=== PATIENT | female | born 1970 | race African-American/Black ===

== ENCOUNTER 2019-07-25 07:51 | Inpatient (IN) | payer MEDICAID ==
[~2019-07-25] VITALS: Ht 162.6 cm; Wt 77.1 kg
--- NOTE | 2019-07-25 07:45 | NUR ---
ED Nurse Note: ATTEMPTED TO COLLECT MEDICATION LIST BUT PT. DOES NOT REMEMBER THE MEDS SHE TAKES AND RA 68 DOES NOT HAVE THE COPY OF HER MEDLIST WELL
[~2019-07-25 07:51] MED LIST: ASPIRIN325 MG ORAL; HYDROCHLOROTH12.5 M2 ORAL; HYDROCHLOROTHIA25 MG ORAL; LISINOPRIL2.5 MG ORAL; MORPHINE 22 MG/1 ML IV; OMEPRAZOLE20 M2 ORAL; PROTONIX40 MG ORAL; QUINAPRIL HCL5 MG PO; TYLENOL650 MG/20. ORAL; VICTOZA 2-0.6 MG/0.1 SUBQ
--- NOTE | 2019-07-25 07:52 | NUR ---
ED Nurse Note: Late entry: PT brought in by MAURICE PADILLA 68 for CP; first symptoms of CP around 0530; PT has R-arm radiating pain; hx of 2 stents in 2013 @ [facility] both at the same time; PT AAOx3-4; reported by RA tat PT has hx of DM; HTN; BS upon arrival 139; SR on EKG; 1 shot nitro and 325mg aspirin given by RA unit. HX of anxiety, PT ambulates with cane due to R-broken toe which is work related. Placed on spring fitter helper, will continue to monitor PT.
[2019-07-25 08:25] VITALS: BP 164/99
--- NOTE | 2019-07-25 08:32 | Emergency Room Report ---
History of Present Illness General Chief Complaint: Chest Pain Source: Patient, EMS Present Illness HPI Patient presents with complaints of left upper chest pain and heaviness Reports that she was getting ready for work this morning when she felt the discomfort appeared to be associated with exertion and so she started to move At a slower pace Denies any headache denies any vomiting denies any pleurisy Denies any abdominal pain Patient has pertinent medical history including visit here in 2013 Where she developed elevated troponin levels and was transferred to [facility] and had Stent placement patient reports that she has not had appropriate follow-up since then Allergies: Coded Allergies: METFORMIN (Unverified Allergy, Unknown, 07/25/19) Patient History Past Medical History: see triage record Reviewed Nursing Documentation: PMH: Agreed; PSxH: Agreed Nursing Documentation-PMH Hx Cardiac Problems: Yes Hx Hypertension: Yes Hx Diabetes: Yes Hx Cancer: No Hx Gastrointestinal Problems: No Hx Neurological Problems: No Review of Systems All Other Systems: negative except mentioned in HPI Physical Exam Vital Signs Date Time Temp Pulse Resp B/P (MAP) Pulse Ox O2 Delivery O2 Flow Rate FiO2 07/25/19 07:33 98.8 73 19 164/99 (120) 99 Room Air Sp02 EP Interpretation: reviewed, normal General Appearance: well appearing, no apparent distress Head: normocephalic, atraumatic Eyes: bilateral eye PERRL, bilateral eye EOMI ENT: hearing grossly normal, normal pharynx, TMs + canals normal, uvula midline Neck: full range of motion, supple, no meningismus, no bony tend Respiratory: lungs clear, normal breath sounds, no rhonchi, no respiratory distress, no retraction, no accessory muscle use Cardiovascular #1: normal peripheral pulses, regular rate, rhythm, no edema, no gallop, no JVD, no murmur Gastrointestinal: normal bowel sounds, non tender, soft, no mass, no organomegaly, non-distended, no guarding, no hernia, no pulsatile mass, no rebound Genitourinary: no CVA tenderness Musculoskeletal: back normal Neurologic: motor strength/tone normal, media relations coordinator III-XII nml as tested, oriented x3 , sensory intact, responsive Psychiatric: mood/affect normal Skin: no rash Lymphatic: normal inspection, no adenopathy Procedures Critical Care Time Critical Care Time 50 minutes for multiple re-evaluations initial critical presentation findings concerning for acute cardiopulmonary arrest not including any procedural time Medical Decision Making Diagnostic Impression: Primary Impression: ACS (acute coronary syndrome) Additional Impression: Elevated troponin ER Course Patient is a fairly complex patient with multiple differential to consideration including but not limited to cardiac cardiopulmonary and vascular emergencies Patient's description of pain is concerning the initial troponin is also slightly elevated EKG does not show any ST elevations The troponin and EKG are repeated Remaining fairly stable patient is started on heparin bolus and drip And at this time admitted for further inpatient care Labs Test 07/27/19 23:45 07/28/19 08:00 07/28/19 15:00 07/29/19 04:05 Activated Partial Thromboplast Time > 150 SEC (23-33) 101 SEC (23-33) 66 SEC (23-33) 68 SEC (23-33) White Blood Count 3.3 K/UL (4.8-10.8) Red Blood Count 4.50 M/UL (4.20-5.40) Hemoglobin 14.3 G/DL (12.0-16.0) Hematocrit 42.0 % (37.0-47.0) Mean Corpuscular Volume 93 FL (80-99) Mean Corpuscular Hemoglobin 31.7 PG (27.0-31.0) Mean Corpuscular Hemoglobin Concent 34.0 G/DL (32.0-36.0) Red Cell Distribution Width 11.7 % (11.6-14.8) Platelet Count 128 K/UL (150-450) Mean Platelet Volume 11.6 FL (6.5-10.1) Neutrophils (%) (Auto) % (45.0-75.0) Lymphocytes (%) (Auto) % (20.0-45.0) Monocytes (%) (Auto) % (1.0-10.0) Eosinophils (%) (Auto) % (0.0-3.0) Basophils (%) (Auto) % (0.0-2.0) Differential Total Cells Counted 100 Neutrophils % (Manual) 62 % (45-75) Lymphocytes % (Manual) 31 % (20-45) Monocytes % (Manual) 6 % (1-10) Eosinophils % (Manual) 1 % (0-3) Basophils % (Manual) 0 % (0-2) Band Neutrophils 0 % (0-8) Platelet Estimate Decreased Platelet Morphology Normal Red Blood Cell Morphology Normal Prothrombin Time 10.2 SEC (9.30-11.50) Prothromb Time International Ratio 1.0 (0.9-1.1) Sodium Level 145 MMOL/L (136-145) Potassium Level 3.6 MMOL/L (3.5-5.1) Chloride Level 108 MMOL/L (98-107) Carbon Dioxide Level 26 MMOL/L (21-32) Anion Gap 12 mmol/L (5-15) Blood Urea Nitrogen 9 mg/dL (7-18) Creatinine 0.9 MG/DL (0.55-1.30) Estimat Glomerular Filtration Rate > 60 mL/min (>60) Glucose Level 158 MG/DL (74-106) Calcium Level 9.2 MG/DL (8.5-10.1) Total Creatine Kinase 32 U/L (26-308) Troponin I 0.376 ng/mL (0.000-0.056) Pro-B-Type Natriuretic Peptide 593 pg/mL (0-125) Test 07/30/19 04:00 07/30/19 12:30 White Blood Count 4.7 K/UL (4.8-10.8) Red Blood Count 4.32 M/UL (4.20-5.40) Hemoglobin 13.9 G/DL (12.0-16.0) Hematocrit 41.4 % (37.0-47.0) Mean Corpuscular Volume 96 FL (80-99) Mean Corpuscular Hemoglobin 32.0 PG (27.0-31.0) Mean Corpuscular Hemoglobin Concent 33.5 G/DL (32.0-36.0) Red Cell Distribution Width 13.7 % (11.6-14.8) Platelet Count 143 K/UL (150-450) Mean Platelet Volume 13.8 FL (6.5-10.1) Neutrophils (%) (Auto) 52.1 % (45.0-75.0) Lymphocytes (%) (Auto) 38.7 % (20.0-45.0) Monocytes (%) (Auto) 6.1 % (1.0-10.0) Eosinophils (%) (Auto) 1.6 % (0.0-3.0) Basophils (%) (Auto) 1.5 % (0.0-2.0) Activated Partial Thromboplast Time 63 SEC (23-33) 96 SEC (23-33) Sodium Level 147 MMOL/L (136-145) Potassium Level 4.0 MMOL/L (3.5-5.1) Chloride Level 112 MMOL/L (98-107) Carbon Dioxide Level 27 MMOL/L (21-32) Anion Gap 8 mmol/L (5-15) Blood Urea Nitrogen 14 mg/dL (7-18) Creatinine 0.8 MG/DL (0.55-1.30) Estimat Glomerular Filtration Rate > 60 mL/min (>60) Glucose Level 145 MG/DL (74-106) Calcium Level 9.0 MG/DL (8.5-10.1) Troponin I 0.266 ng/mL (0.000-0.056) EKG Diagnostic Results Rate: normal Rhythm: NSR ST Segments: other - Nonspecific ST and T wave changes Rhythm Strip Diag. Results EP Interpretation: yes Rate: 80 Rhythm: NSR, no PVC's, no ectopy Chest X-Ray Diagnostic Results Chest X-Ray Diagnostic Results : Chest X-Ray Ordered: Yes # of Views/Limited/Complete: 1 View Indication: Chest Pain EP Interpretation: Yes Interpretation: no consolidation, no effusion, no pneumothorax Impression: No acute disease Electronically Signed by: Wyatt Powell DO Last Vital Signs Date Time Temp Pulse Resp B/P (MAP) Pulse Ox O2 Delivery O2 Flow Rate FiO2 07/25/19 08:25 98.8 62 19 164/99 99 Room Air Status: improved Disposition: ADMITTED INPATIENT Condition: Critical Wyatt Powell DO Jul 25, 2019 08:32
[2019-07-25 08:38] LABS: BASOPHILS % (AUTO) 1.2 % (0.0-2.0); EOSINOPHILS % (AUTO) 1.1 % (0.0-3.0); HEMATOCRIT 46.6 % (37.0-47.0); HEMOGLOBIN 16.3 G/DL (12.0-16.0); LYMPHOCYTES % (AUTO) 32.1 % (20.0-45.0); MEAN CORPUSCULAR VOLUME 93 FL (80-99); MONOCYTES % (AUTO) 5.4 % (1.0-10.0); NEUTROPHILS % (AUTO) 60.3 % (45.0-75.0); PLATELET COUNT 149 K/UL (150-450); RED BLOOD COUNT 5.02 M/UL (4.20-5.40); RED CELL DISTRIBUTION WIDTH 11.6 % (11.6-14.8); WHITE BLOOD COUNT 5.6 K/UL (4.8-10.8)
[2019-07-25] MEDS ORDERED: Morphine Sulfate 4mg/ml Inj (IV USE ONLY) IVP ONE (08:45)
[2019-07-25 08:52] LABS: ANION GAP 12 mmol/L (5-15); BLOOD UREA NITROGEN 9 mg/dL (7-18); CALCIUM 9.2 MG/DL (8.5-10.1); CARBON DIOXIDE 24 MMOL/L (21-32); CHLORIDE 106 MMOL/L (98-107); CREATININE 0.7 MG/DL (0.55-1.30); POTASSIUM 3.5 MMOL/L (3.5-5.1); SODIUM 142 MMOL/L (136-145)
[2019-07-25 09:03] LABS: ALANINE AMINOTRANSFERASE 27 U/L (12-78); ALBUMIN 3.5 G/DL (3.4-5.0); ALKALINE PHOSPHATASE 105 U/L (46-116); ASPARTATE AMINO TRANSFERASE 18 U/L (15-37); BILIRUBIN,TOTAL 0.4 MG/DL (0.2-1.0); CREATINE KINASE 40 U/L (26-308)
--- NOTE | 2019-07-25 09:13 | NUR ---
ED Nurse Note: Meds given, PT has son at bedside, AAO x 4; no S/S of respiratory distress, will continue to monitor PT.
--- NOTE | 2019-07-25 09:45 | NUR ---
ED Nurse Note: Updated PT that she will be admitted, AAOx4; no S/S of respiratory distress, son at bedside. Will continue to monitor.
[2019-07-25 10:00] VITALS: BP 159/83
--- NOTE | 2019-07-25 10:34 | NUR ---
ED Nurse Note: PT AAOx3; blood redrawn for 2nd troponin lvl. Will continue to monitor.
[2019-07-25] MEDS ORDERED: Nitroglycerin 2% oint pkt TOPIC ONE (10:45)
--- NOTE | 2019-07-25 10:50 | Diagnostic Imaging Report ---
Indication: Chest Technique: One view of the chest Comparison: 11/09/2013 Findings: Lungs and pleural spaces are clear. Heart size is normal. No significant change Impression: No acute process
--- NOTE | 2019-07-25 10:54 | NUR ---
ED Nurse Note: Nitro patch applied as prescribed to L-upper chest; urine sample sent to lab.
[2019-07-25] MEDS ORDERED: Heparin 25,000u/D5W 500ml 500 ML IV SCH ×3 (11:15→18:00)
[2019-07-25] MEDS ORDERED: Heparin 5000 units/ml inj IV ONE (11:15)
[2019-07-25] MEDS ORDERED: Miralax 17gm pkt ORAL PRN (11:45)
[2019-07-25] MEDS ORDERED: Enalaprilat 2.5mg/2ml Inj IV PRN (11:45)
[2019-07-25] MEDS ORDERED: Albuterol/Ipratropium 3ml neb HHN PRN (11:45)
[2019-07-25] MEDS ORDERED: dilTIAZem HCl 25mg/5ml Inj IV PRN (11:45)
--- NOTE | 2019-07-25 11:46 | Consultation ---
History of Present Illness General Date patient seen: Jul 25, 2019 Chief Complaint: Chest Pain Present Illness HPI 49 year old female with hx of DM, CAD, ME, cardiac stent few years ago at [facility], presented to ER with CC of chest pain. Her troponin was slightly positive. She is admitted to telemetry for further evaluation. Allergies: Coded Allergies: METFORMIN (Unverified Allergy, Unknown, 07/25/19) Medication History Scheduled Hydrochlorothiazide* (Hydrochlorothiazide*), 25 MG ORAL DAILY, (Reported) Liraglutide (Victoza 2-Baljinder), 1.2 MG SUBQ DAILY, (Reported) Omeprazole (Omeprazole), 20 MG ORAL DAILY, (Reported) Quinapril Hcl (Quinapril Hcl), 5 MG PO DAILY, (Reported) Patient History Healthcare decision maker Resuscitation status Advanced Directive on File Past Medical/Surgical History Past Medical/Surgical History: (1) ACS (acute coronary syndrome) (2) History of hypertension (3) History of diabetes mellitus (4) History of [place] (myocardial infarction) (5) Stented coronary artery Review of Systems All Other Systems: negative except mentioned in HPI Physical Exam General Appearance: WD/WN, no apparent distress Lines, tubes and drains: peripheral HEENT: normocephalic, atraumatic Neck: non-tender, normal alignment Respiratory/Chest: chest wall non-tender, lungs clear Breasts: no masses Cardiovascular/Chest: normal peripheral pulses, normal rate Abdomen: normal bowel sounds Genitourinary/Rectal: normal genital exam Last 24 Hour Vital Signs Date Time Temp Pulse Resp B/P (MAP) Pulse Ox O2 Delivery O2 Flow Rate FiO2 07/25/19 10:50 182/101 07/25/19 10:00 65 14 159/83 97 Room Air 64 07/25/19 09:34 98.8 07/25/19 08:26 62 19 Room Air 07/25/19 08:25 98.8 62 19 164/99 99 Room Air 07/25/19 07:33 98.8 73 19 164/99 (120) 99 Room Air Laboratory Tests Test 07/25/19 08:19 07/25/19 10:32 07/25/19 10:55 White Blood Count 5.6 K/UL (4.8-10.8) Red Blood Count 5.02 M/UL (4.20-5.40) Hemoglobin 16.3 G/DL (12.0-16.0) H Hematocrit 46.6 % (37.0-47.0) Mean Corpuscular Volume 93 FL (80-99) Mean Corpuscular Hemoglobin 32.4 PG (27.0-31.0) H Mean Corpuscular Hemoglobin Concent 34.9 G/DL (32.0-36.0) Red Cell Distribution Width 11.6 % (11.6-14.8) Platelet Count 149 K/UL (150-450) L Mean Platelet Volume 11.2 FL (6.5-10.1) H Neutrophils (%) (Auto) 60.3 % (45.0-75.0) Lymphocytes (%) (Auto) 32.1 % (20.0-45.0) Monocytes (%) (Auto) 5.4 % (1.0-10.0) Eosinophils (%) (Auto) 1.1 % (0.0-3.0) Basophils (%) (Auto) 1.2 % (0.0-2.0) Prothrombin Time 10.3 SEC (9.30-11.50) Prothromb Time International Ratio 1.0 (0.9-1.1) Activated Partial Thromboplast Time 27 SEC (23-33) Sodium Level 142 MMOL/L (136-145) Potassium Level 3.5 MMOL/L (3.5-5.1) Chloride Level 106 MMOL/L (98-107) Carbon Dioxide Level 24 MMOL/L (21-32) Anion Gap 12 mmol/L (5-15) Blood Urea Nitrogen 9 mg/dL (7-18) Creatinine 0.7 MG/DL (0.55-1.30) Estimat Glomerular Filtration Rate > 60 mL/min (>60) Glucose Level 146 MG/DL (74-106) H Calcium Level 9.2 MG/DL (8.5-10.1) Total Bilirubin 0.4 MG/DL (0.2-1.0) Aspartate Amino Transf (AST/SGOT) 18 U/L (15-37) Alanine Aminotransferase (ALT/SGPT) 27 U/L (12-78) Alkaline Phosphatase 105 U/L (46-116) Total Creatine Kinase 40 U/L (26-308) Troponin I 0.222 ng/mL (0.000-0.056) 0.239 ng/mL (0.000-0.056) Pro-B-Type Natriuretic Peptide 104 pg/mL (0-125) Total Protein 7.0 G/DL (6.4-8.2) Albumin 3.5 G/DL (3.4-5.0) Globulin 3.5 g/dL Albumin/Globulin Ratio 1.0 (1.0-2.7) Lipase 268 U/L (73-393) Urine Opiates Screen Positive (NEGATIVE) H Urine Barbiturates Screen Negative (NEGATIVE) Phencyclidine (PCP) Screen Negative (NEGATIVE) Urine Amphetamines Screen Negative (NEGATIVE) Urine Benzodiazepines Screen Negative (NEGATIVE) Urine Cocaine Screen Negative (NEGATIVE) Urine Marijuana (THC) Screen Positive (NEGATIVE) H Height (Feet): 5 Height (Inches): 4.00 Weight (Pounds): 170 Medications Current Medications Medications (Trade) Dose Ordered Sig/Stiven Route PRN Reason Start Time Stop Time Status Last Admin Dose Admin Heparin Sodium/ Dextrose 500 ml @ 18.507 mls/ hr ADJUST PER PROTOCOL IV 07/25/19 11:15 08/24/19 11:14 07/25/19 11:29 Assessment/Plan Problem List: (1) ACS (acute coronary syndrome) ICD Codes: I20.0 - Unstable angina SNOMED: 261613565 (2) History of ME (myocardial infarction) ICD Codes: I25.2 - Old myocardial infarction SNOMED: 191236598 (3) Stented coronary artery ICD Codes: Z95.5 - Presence of coronary angioplasty implant and graft SNOMED: 87791950, 932740977 (4) History of diabetes mellitus ICD Codes: Z86.39 - Personal history of other endocrine, nutritional and metabolic disease SNOMED: 466178620 (5) History of hypertension ICD Codes: Z86.79 - Personal history of other diseases of the circulatory system SNOMED: 398869159 Assessment/Plan: telemetry monitoring check troponin get [facility] records Aspirin, echocardiogram siding scale symptomatic treatment dvt prophylaxis. Zeynep Sarkar MD Jul 25, 2019 11:46
[2019-07-25] MEDS ORDERED: Metoprolol Tartrate 5mg/5ml Inj IVP SCH (12:00)
[2019-07-25 12:30] VITALS: BP 157/89
--- NOTE | 2019-07-25 12:30 | NUR ---
TRANSFER TO FLOOR: Patient transferred to as ordered to 208-2 Report given to MARY Durand. Belongings with PT. Family and or S/O informed of transfer.
--- NOTE | 2019-07-25 12:40 | NUR ---
NURSE NOTES: Received patient from Henry Doty, Patient ias AAOX4 being admitted from ER. transported via gurney. patient able to transfer herself to bed. VSS. skin intact. Patient on heparin gtt 12 units/hr = 18.5ml/hr for ACS protocol. No signs and symptoms of bleeding. Patient denies pain or discomfort. All orders placed by Doctor Mello. Oriented to room and safety. call sebastian within patients reach. education provided re: safety precautions . will follow.
--- NOTE | 2019-07-25 13:30 | NUR ---
NURSE NOTES: Per Dr. Sarkar. Continue Heparin till seen by Casing Crew Pusher.
[2019-07-25] MEDS ORDERED: Heparin 5000 units/ml inj SUBQ SCH (14:00)
[2019-07-25 16:00] VITALS: BP 125/76
[2019-07-25] MEDS ORDERED: Heparin 5000 units/ml inj IV SCH (17:30)
[2019-07-25] MEDS: NovoLOG Insulin Flexpen SUBQ SCH ×2 (17:57→21:10)
--- NOTE | 2019-07-25 18:13 | NUR ---
NURSE NOTES: Message left to Dr. New re: repeat troponin result.
--- NOTE | 2019-07-25 19:21 | NUR ---
HAND-OFF: Report given to Henry Melissa.Plan of care endorsed.
--- NOTE | 2019-07-25 19:26 | NUR ---
NURSE NOTES: Received report from MARY Durand. Patient laying awake in bed. There are no signs of distress or pain at this time. Checked IV site, no signs of bleeding or infiltration. Running Heparin drip, 16 Units. AO x 4. She is able to ambulate with assistance and cane. Bed in the lowest position, brakes are on and side rails are up x 2. Call light within reach. Will continue plan of care.
--- NOTE | 2019-07-25 19:40 | History & Physical ---
History and Physical History & Physicial Dictated for Int Med-Dr Walton no. [id number] Asif Orlando MD Jul 25, 2019 19:40
[2019-07-25 20:00] VITALS: BP 116/68
--- NOTE | 2019-07-25 20:45 | History and Physical Report ---
DATE OF ADMISSION: 07/25/2019 CHIEF COMPLAINT: The patient is a 49-year-old female, who presents with a chief complaint of chest pain. HISTORY OF PRESENT ILLNESS: Began this morning when the patient was getting ready for work. The patient has a history of coronary artery disease and is status post stent placement in 2013. The patient has a history of coronary artery disease. The patient is status post stent placement in 2013 at [facility]. The patient has failed to followup since that time. The patient states history of present illness began this morning. The patient began to experience left upper chest pain. This occurred when the patient was getting ready for work. The patient states the pain lasted until arrival at [facility]. The patient was evaluated in [place] emergency room. The patient was admitted with chest pain to rule out acute coronary syndrome. REVIEW OF SYSTEMS: CONSTITUTIONAL: The patient denies weight loss or weight gain. The patient denies fevers or chills. HEENT: The patient denies ear or throat pain. The patient denies headache. CARDIOVASCULAR: The patient complains of chest pain as above. The patient denies palpitations. ABDOMEN: The patient denies nausea, vomiting, diarrhea, or constipation. CHEST: The patient denies wheezes or shortness of breath. GENITOURINARY: The patient denies dysuria or increased frequency of urination. NEUROMUSCULAR: The patient denies seizures or generalized weakness. PAST MEDICAL HISTORY: Significant for: 1. Coronary artery disease, status post stent placement in 2013. 2. Hypertension. 3. Diabetes type 2. PAST SURGICAL HISTORY: The patient denies. CURRENT MEDICATIONS: 1. Hydrochlorothiazide 12.5 mg p.o. daily. 2. Victoza 1.2 mg subcutaneously daily. 3. Omeprazole 20 mg p.o. daily. 4. Quinapril 5 mg p.o. daily. ALLERGIES: To metformin. SOCIAL HISTORY: The patient is single and lives alone. The patient admits to tobacco use of one pack per day. The patient denies alcohol use. PHYSICAL EXAMINATION: VITAL SIGNS: Temperature 97.6, respirations 18, pulse 65, blood pressure 182/101. GENERAL: The patient is well-developed, well-nourished female, in mild distress. HEENT: Eyes, pupils equal and responsive to light and accommodation. Extraocular movements are intact. NECK: Supple without lymphadenopathy. CHEST: Lungs are clear to auscultation bilaterally without wheezes or rales. CARDIOVASCULAR: Regular rate. S1 and S2 are normal without murmurs, rubs, or gallops. ABDOMEN: Soft, nontender, and nondistended. Positive bowel sounds. No evidence of hepatosplenomegaly. Currently, no rebound or guarding noted. EXTREMITIES: Negative for clubbing, cyanosis, or edema. RECTAL: Not performed. GENITAL: Not performed. NEUROLOGIC: Cranial nerves II through XII are grossly intact without focal deficits. Motor strength is 5/5 bilaterally. Deep tendon reflexes are 2+ plantar. LABORATORY AND DIAGNOSTIC DATA: Laboratory studies, WBC 5.6, hemoglobin 16.3, hematocrit 46.6, platelets 149,000. Sodium 142, potassium 3.5, chloride 106, CO2 24, BUN 9, creatinine 0.7, glucose 146. Troponin elevated 0.222. A chest x-ray was reported as no acute process. ASSESSMENT: This is a 49-year-old female with: 1. Chest pain. 2. Elevated troponin level. 3. History of coronary artery disease. 4. Diabetes type 2. 5. Hypertension. TREATMENT: 1. Chest pain/elevated troponin. A Cardiology consultation has been obtained with Dr. Arthur New. We will follow recommendations of Cardiology. 2. History of coronary artery disease. The patient is status post stent placement. The patient may require stress testing during this hospitalization. 3. Diabetes type 2. NovoLog sliding scale has been instituted. 4. Hypertension. Continue metoprolol and quinapril as above. Asif Orlando M.D. DR: SHI JOB#: [id number] CC:
--- NOTE | 2019-07-25 21:52 | NUR ---
NURSE NOTES: Administered Tylenol PRN medication per patient's request for headache.
[2019-07-26] VITALS: BP 117/75
[2019-07-26] MEDS ORDERED: Heparin 25,000u/D5W 500ml 500 ML IV SCH ×2 (01:20→09:00)
[2019-07-26 04:00] VITALS: BP 119/73
[2019-07-26] MEDS: NovoLOG Insulin Flexpen SUBQ SCH ×4 (06:20→20:14)
--- NOTE | 2019-07-26 07:32 | NUR ---
HAND-OFF: Report given to MARY De La Garza. Patient is awake sitting on the edge of the bed; resting comfortably. In stable condition.
--- NOTE | 2019-07-26 07:37 | NUR ---
NURSE NOTES: Received report from MARY Melissa. Pt A/O x4, breathing even and unlabored in RA. IV site on R AC 20g patent and asymptomatic, currently on Hep drip 13units/kg/hr. No s/sx of acute distress. bed on lowest position, call light within reach. Will continue plan of care.
[2019-07-26 07:54] LABS: BASOPHILS % (AUTO) 1.1 % (0.0-2.0); EOSINOPHILS % (AUTO) 1.6 % (0.0-3.0); HEMATOCRIT 43.2 % (37.0-47.0); LYMPHOCYTES % (AUTO) 43.1 % (20.0-45.0); MEAN CORPUSCULAR VOLUME 94 FL (80-99); MONOCYTES % (AUTO) 6.7 % (1.0-10.0); NEUTROPHILS % (AUTO) 47.5 % (45.0-75.0); PLATELET COUNT 139 K/UL (150-450); RED BLOOD COUNT 4.61 M/UL (4.20-5.40); RED CELL DISTRIBUTION WIDTH 11.9 % (11.6-14.8); WHITE BLOOD COUNT 4.9 K/UL (4.8-10.8)
[2019-07-26 08:00] VITALS: BP 152/82
[2019-07-26 08:49] LABS: CHOLESTEROL 209 MG/DL (< 200); HDL CHOLESTEROL 40 MG/DL (40-60); TRIGLYCERIDES 101 MG/DL (30-150)
[2019-07-26] MEDS: Aspirin Baby 81mg ORAL SCH (08:58)
[2019-07-26] MEDS ORDERED: Heparin 5000 units/ml inj IV ONE (09:00)
[2019-07-26] MEDS: Nitroglycerin Subl 0.4mg tab SL PRN ×2 (09:30→17:46)
[2019-07-26 12:00] VITALS: BP 141/71
--- NOTE | 2019-07-26 12:43 | NUR ---
CASE MANAGEMENT:INITIAL REVIEW 49YR OLD FEMALE BIBA FROM [facility] CC: CHEST PAIN SI: CAD . HTN . DM II . HX: MA . STENT 2014 98.8 73 19 164/99 99% ON RA TROP 0.222 -0.239-0.390 Hgb 16.3 PTT 37-130 OPIATE (+) IS: IVF NS BOLUSX1 IV MORPHINE SULFATE X1 IV ZOFRAN X1 NITRO-BID X1 CHEST X-RAY X1 2D ECHO - EKG- ABNORMAL; WIDESPREAD ST-T ABNORM SUGGEST MYOCARDIAL INJURY/ISCHEMIA \: 2E TELE UNIT CASE MANAGEMENT: REVIEW 07/26/19 SI: CHEST PAIN . ACS . HTN . ELEVATED TROP . DM II HX: MA . STENT 2014 97.5 63 20 152/82 97% ON RA TROP 0.289 PTT 48 IS:HEPARIN GTT ASA PO QD NTG Q5M/PRN PROTONIX PO QD TYLENOL PO Q4/PRN \: 2E TELE UNIT PLAN: MONITOR PTT ADMIT TO INPATIENT CONT HEPARIN GTT CONT CARDIAC MONITORING
--- NOTE | 2019-07-26 13:19 | Pulmonology Progress Note ---
Assessment/Plan Problems: (1) ACS (acute coronary syndrome) (2) History of [place] (myocardial infarction) (3) Stented coronary artery (4) History of diabetes mellitus (5) History of hypertension Assessment/Plan telemetry monitoring check troponin get [facility] records Aspirin, echocardiogram reviewed, EF is 65-70% siding scale symptomatic treatment dvt prophylaxis. Subjective ROS Limited/Unobtainable: No Constitutional: Reports: no symptoms HEENT: Repors: no symptoms Allergies: Coded Allergies: METFORMIN (Unverified Allergy, Unknown, 07/25/19) Objective Last 24 Hour Vital Signs Date Time Temp Pulse Resp B/P (MAP) Pulse Ox O2 Delivery O2 Flow Rate FiO2 07/26/19 09:30 152/82 07/26/19 09:00 Room Air 07/26/19 08:00 97.5 63 20 152/82 (105) 97 07/26/19 04:00 60 07/26/19 04:00 97.8 63 18 119/73 (88) 96 07/26/19 00:00 61 07/26/19 00:00 97.9 62 18 117/75 (89) 95 07/25/19 21:00 Room Air 07/25/19 20:00 98.1 62 19 116/68 (84) 98 07/25/19 20:00 64 07/25/19 16:00 98.1 70 18 125/76 (92) 97 07/25/19 16:00 76 Intake and Output 07/25/19 07/26/19 19:00 07:00 Intake Total 320 ml 255.858 ml Balance 320 ml 255.858 ml Intake IV Total 255.858 ml Other 320 ml # Voids 2 4 General Appearance: WD/WN Respiratory/Chest: chest wall non-tender, normal breath sounds Breasts: no masses Cardiovascular: normal peripheral pulses Genitourinary: normal external genitalia Extremities: no clubbing Neurologic/Psychiatric: binder and box builder II-XII grossly normal Laboratory Tests 07/25/19 16:22: Troponin I 0.390H 07/25/19 16:46: Activated Partial Thromboplast Time 37H 07/26/19 00:20: Activated Partial Thromboplast Time 130H 07/26/19 07:36: Troponin I 0.289H, Activated Partial Thromboplast Time 48H, White Blood Count 4.9, Red Blood Count 4.61, Hemoglobin 15.0, Hematocrit 43.2, Mean Corpuscular Volume 94, Mean Corpuscular Hemoglobin 32.6H, Mean Corpuscular Hemoglobin Concent 34.8, Red Cell Distribution Width 11.9, Platelet Count 139L, Mean Platelet Volume 11.0H, Neutrophils (%) (Auto) 47.5, Lymphocytes (%) (Auto) 43.1 , Monocytes (%) (Auto) 6.7, Eosinophils (%) (Auto) 1.6, Basophils (%) (Auto) 1.1 , Prothrombin Time 10.2, Prothromb Time International Ratio 1.0, C-Reactive Protein, Quantitative 2.0H, Triglycerides Level 101, Cholesterol Level 209H, LDL Cholesterol 145H, HDL Cholesterol 40, Cholesterol/HDL Ratio 5.2H, Thyroid Stimulating Hormone (TSH) 1.035 Current Medications Medications (Trade) Dose Ordered Sig/Stiven Route PRN Reason Start Time Stop Time Status Last Admin Dose Admin Acetaminophen (Tylenol) 650 mg Q4H PRN ORAL FEVER 07/25/19 11:45 08/24/19 11:44 07/25/19 21:52 Albuterol/ Ipratropium (Albuterol/ Ipratropium) 3 ml Q4H PRN HHN Shortness of Breath 07/25/19 11:45 07/30/19 11:44 Aspirin (ASA) 162 mg DAILY ORAL 07/26/19 09:00 08/25/19 08:59 07/26/19 08:58 Dextrose (Dextrose 50%) 25 ml Q30M PRN IV Hypoglycemia 07/25/19 11:45 08/24/19 11:44 Dextrose (Dextrose 50%) 50 ml Q30M PRN IV Hypoglycemia 07/25/19 11:45 08/24/19 11:44 Diltiazem HCl (Cardizem) 10 mg Q1H PRN IV heart rate more than 120, 07/25/19 11:45 08/24/19 11:44 Enalaprilat (Vasotec) 2.5 mg Q6H PRN IV sbp more than 160 07/25/19 11:45 08/24/19 11:44 Heparin Sodium/ Dextrose 500 ml @ 26.218 mls/ hr ADJUST PER PROTOCOL IV 07/26/19 09:00 08/25/19 01:19 07/26/19 09:22 Insulin Aspart (NovoLOG) BEFORE MEALS AND HS SUBQ 07/25/19 16:30 08/24/19 16:29 07/25/19 21:10 Nitroglycerin (Ntg) 0.4 mg Q5M PRN SL Prn Chest Pain 07/25/19 11:45 08/24/19 11:44 07/26/19 09:30 Ondansetron HCl (Zofran) 4 mg Q6H PRN IVP Nausea & Vomiting 07/25/19 11:45 08/24/19 11:44 Pantoprazole (Protonix) 40 mg DAILY ORAL 07/26/19 09:00 08/25/19 08:59 07/26/19 08:58 Polyethylene Glycol (Miralax) 17 gm DAILYPRN PRN ORAL Constipation 07/25/19 11:45 08/24/19 11:44 Temazepam (Restoril) 15 mg HSPRN PRN ORAL Insomnia 07/25/19 11:45 08/01/19 11:44 Zeynep Sarkar MD Jul 26, 2019 13:19
--- NOTE | 2019-07-26 15:33 | NUR ---
*-* NO INSURANCE INFORMATION IN THE BAR UNABLE TO SEND CLINICALS *-*
[2019-07-26 16:00] VITALS: BP 131/79
[2019-07-26] MEDS ORDERED: Heparin 5000 units/ml inj IV SCH (16:30)
[2019-07-26] MEDS: Heparin 25,000u/D5W 500ml 500 ML IV SCH ×2 (17:41→20:07)
--- NOTE | 2019-07-26 18:52 | Internal Med Progress Note ---
Subjective Date of Service: Jul 26, 2019 Physician Name Asif Orlando Attending Physician Mookie Ladd MD Current Medications Medications (Trade) Dose Ordered Sig/Stiven Route PRN Reason Start Time Stop Time Status Last Admin Dose Admin Acetaminophen (Tylenol) 650 mg Q4H PRN ORAL FEVER 07/25/19 11:45 08/24/19 11:44 07/25/19 21:52 Albuterol/ Ipratropium (Albuterol/ Ipratropium) 3 ml Q4H PRN HHN Shortness of Breath 07/25/19 11:45 07/30/19 11:44 Aspirin (ASA) 162 mg DAILY ORAL 07/26/19 09:00 08/25/19 08:59 07/26/19 08:58 Dextrose (Dextrose 50%) 25 ml Q30M PRN IV Hypoglycemia 07/25/19 11:45 08/24/19 11:44 Dextrose (Dextrose 50%) 50 ml Q30M PRN IV Hypoglycemia 07/25/19 11:45 08/24/19 11:44 Diltiazem HCl (Cardizem) 10 mg Q1H PRN IV heart rate more than 120, 07/25/19 11:45 08/24/19 11:44 Enalaprilat (Vasotec) 2.5 mg Q6H PRN IV sbp more than 160 07/25/19 11:45 08/24/19 11:44 Heparin Sodium/ Dextrose 500 ml @ 29.302 mls/ hr ADJUST PER PROTOCOL IV 07/26/19 16:30 08/25/19 01:19 07/26/19 17:41 Insulin Aspart (NovoLOG) BEFORE MEALS AND HS SUBQ 07/25/19 16:30 08/24/19 16:29 07/25/19 21:10 Nitroglycerin (Ntg) 0.4 mg Q5M PRN SL Prn Chest Pain 07/25/19 11:45 08/24/19 11:44 07/26/19 17:46 Ondansetron HCl (Zofran) 4 mg Q6H PRN IVP Nausea & Vomiting 07/25/19 11:45 08/24/19 11:44 Pantoprazole (Protonix) 40 mg DAILY ORAL 07/26/19 09:00 08/25/19 08:59 07/26/19 08:58 Polyethylene Glycol (Miralax) 17 gm DAILYPRN PRN ORAL Constipation 07/25/19 11:45 08/24/19 11:44 Temazepam (Restoril) 15 mg HSPRN PRN ORAL Insomnia 07/25/19 11:45 08/01/19 11:44 Allergies: Coded Allergies: METFORMIN (Unverified Allergy, Unknown, 07/25/19) ROS Limited/Unobtainable: No Constitutional: Reports: no symptoms HEENT: Reports: no symptoms Cardiovascular: Reports: chest pain Respiratory: Reports: no symptoms Gastrointestinal/Abdominal: Reports: no symptoms Genitourinary: Reports: no symptoms Neurologic/Psychiatric: Reports: no symptoms Subjective 49 YO F with history of coronary artery dis admitted with chest pain. Now elevated troponin. Await Cardiology consult. Cover for Int Med-Dr Ladd Objective Last Vital Signs Date Time Temp Pulse Resp B/P (MAP) Pulse Ox O2 Delivery O2 Flow Rate FiO2 07/26/19 17:46 131/79 07/26/19 16:32 59 07/26/19 16:00 97.5 20 95 07/26/19 09:00 Room Air Laboratory Tests Test 07/26/19 00:20 07/26/19 07:36 07/26/19 15:25 Activated Partial Thromboplast Time 130 SEC (23-33) H 48 SEC (23-33) H 53 SEC (23-33) H White Blood Count 4.9 K/UL (4.8-10.8) Red Blood Count 4.61 M/UL (4.20-5.40) Hemoglobin 15.0 G/DL (12.0-16.0) Hematocrit 43.2 % (37.0-47.0) Mean Corpuscular Volume 94 FL (80-99) Mean Corpuscular Hemoglobin 32.6 PG (27.0-31.0) H Mean Corpuscular Hemoglobin Concent 34.8 G/DL (32.0-36.0) Red Cell Distribution Width 11.9 % (11.6-14.8) Platelet Count 139 K/UL (150-450) L Mean Platelet Volume 11.0 FL (6.5-10.1) H Neutrophils (%) (Auto) 47.5 % (45.0-75.0) Lymphocytes (%) (Auto) 43.1 % (20.0-45.0) Monocytes (%) (Auto) 6.7 % (1.0-10.0) Eosinophils (%) (Auto) 1.6 % (0.0-3.0) Basophils (%) (Auto) 1.1 % (0.0-2.0) Prothrombin Time 10.2 SEC (9.30-11.50) Prothromb Time International Ratio 1.0 (0.9-1.1) Troponin I 0.289 ng/mL (0.000-0.056) C-Reactive Protein, Quantitative 2.0 mg/dL (0.00-0.90) H Triglycerides Level 101 MG/DL (30-150) Cholesterol Level 209 MG/DL (< 200) H LDL Cholesterol 145 mg/dL (<100) H HDL Cholesterol 40 MG/DL (40-60) Cholesterol/HDL Ratio 5.2 (3.3-4.4) H Thyroid Stimulating Hormone (TSH) 1.035 uiU/mL (0.358-3.740) Intake and Output 07/25/19 07/26/19 19:00 07:00 Intake Total 320 ml 255.858 ml Balance 320 ml 255.858 ml IV Total 255.858 ml Other 320 ml # Voids 2 4 Objective PHYSICAL EXAMINATION: GENERAL: The patient is well-developed, well-nourished female, in mild distress. HEENT: Eyes, pupils equal and responsive to light and accommodation. Extraocular movements are intact. NECK: Supple without lymphadenopathy. CHEST: Lungs are clear to auscultation bilaterally without wheezes or rales. CARDIOVASCULAR: Regular rate. S1 and S2 are normal without murmurs, rubs, or gallops. ABDOMEN: Soft, nontender, and nondistended. Positive bowel sounds. No evidence of hepatosplenomegaly. Currently, no rebound or guarding noted. EXTREMITIES: Negative for clubbing, cyanosis, or edema. RECTAL: Not performed. GENITAL: Not performed. NEUROLOGIC: Cranial nerves II through XII are grossly intact without focal deficits. Motor strength is 5/5 bilaterally. Deep tendon reflexes are 2+ plantar. Assessment/Plan Assessment/Plan ASSESSMENT: This is a 49-year-old female with: 1. Chest pain. 2. Elevated troponin level. 3. History of coronary artery disease. 4. Diabetes type 2. 5. Hypertension. TREATMENT: 1. Chest pain/elevated troponin. A Cardiology consultation has been obtained with Dr. Arthur New. We will follow recommendations of Cardiology. 2. History of coronary artery disease. The patient is status post stent placement. The patient may require stress testing during this hospitalization. 3. Diabetes type 2. NovoLog sliding scale has been instituted. 4. Hypertension. Continue metoprolol and quinapril as above. Asif Orlando MD Jul 26, 2019 18:52
--- NOTE | 2019-07-26 19:24 | Cardiology Progress Note ---
Assessment/Plan Assessment/Plan [id number] repeat ekg admisssion ekg tinverion inferol late lead previsluly cx only mild intimal irreg asa bb statin heparin will follow ppi Objective Last 24 Hour Vital Signs Date Time Temp Pulse Resp B/P (MAP) Pulse Ox O2 Delivery O2 Flow Rate FiO2 07/26/19 17:46 131/79 07/26/19 16:32 59 07/26/19 16:00 97.5 62 20 131/79 (96) 95 07/26/19 12:00 97.7 64 20 141/71 (94) 94 07/26/19 11:48 69 07/26/19 09:30 152/82 07/26/19 09:00 Room Air 07/26/19 08:00 97.5 63 20 152/82 (105) 97 07/26/19 07:48 62 07/26/19 04:00 60 07/26/19 04:00 97.8 63 18 119/73 (88) 96 07/26/19 00:00 61 07/26/19 00:00 97.9 62 18 117/75 (89) 95 07/25/19 21:00 Room Air 07/25/19 20:00 98.1 62 19 116/68 (84) 98 07/25/19 20:00 64 Intake and Output 07/25/19 07/26/19 18:59 06:59 Intake Total 320 ml 235.809 ml Balance 320 ml 235.809 ml IV Total 235.809 ml Other 320 ml # Voids 2 4 Laboratory Tests Test 07/26/19 00:20 07/26/19 07:36 07/26/19 15:25 Activated Partial Thromboplast Time 130 SEC (23-33) H 48 SEC (23-33) H 53 SEC (23-33) H White Blood Count 4.9 K/UL (4.8-10.8) Red Blood Count 4.61 M/UL (4.20-5.40) Hemoglobin 15.0 G/DL (12.0-16.0) Hematocrit 43.2 % (37.0-47.0) Mean Corpuscular Volume 94 FL (80-99) Mean Corpuscular Hemoglobin 32.6 PG (27.0-31.0) H Mean Corpuscular Hemoglobin Concent 34.8 G/DL (32.0-36.0) Red Cell Distribution Width 11.9 % (11.6-14.8) Platelet Count 139 K/UL (150-450) L Mean Platelet Volume 11.0 FL (6.5-10.1) H Neutrophils (%) (Auto) 47.5 % (45.0-75.0) Lymphocytes (%) (Auto) 43.1 % (20.0-45.0) Monocytes (%) (Auto) 6.7 % (1.0-10.0) Eosinophils (%) (Auto) 1.6 % (0.0-3.0) Basophils (%) (Auto) 1.1 % (0.0-2.0) Prothrombin Time 10.2 SEC (9.30-11.50) Prothromb Time International Ratio 1.0 (0.9-1.1) Troponin I 0.289 ng/mL (0.000-0.056) C-Reactive Protein, Quantitative 2.0 mg/dL (0.00-0.90) H Triglycerides Level 101 MG/DL (30-150) Cholesterol Level 209 MG/DL (< 200) H LDL Cholesterol 145 mg/dL (<100) H HDL Cholesterol 40 MG/DL (40-60) Cholesterol/HDL Ratio 5.2 (3.3-4.4) H Thyroid Stimulating Hormone (TSH) 1.035 uiU/mL (0.358-3.740) Arthur New MD Jul 26, 2019 19:24
--- NOTE | 2019-07-26 19:42 | NUR ---
HAND-OFF: Report given to MARY Keith. Endorsed plan of care.
--- NOTE | 2019-07-26 19:45 | NUR ---
NURSE NOTES: Received report from MARY Gaxiola. Pt A/O x4, breathing even and unlabored in RA. IV site on R AC 20g patent and asymptomatic, currently on Heparin drip 19 units/kg/hr. No s/sx of acute distress. bed on lowest position, call light within reach. Will continue plan of care.
[2019-07-26 20:00] VITALS: BP 159/101
[2019-07-26] MEDS: Atorvastatin 80mg tab ORAL SCH (20:10)
[2019-07-26] MEDS: Metoprolol Tartrate 12.5mg TAB ORAL SCH (20:11)
[2019-07-27] VITALS: BP 118/86
--- NOTE | 2019-07-27 00:58 | NUR ---
NURSE NOTES: Pt results from aPTT came back at 77. Called pharmacist at [facility] and they said to keep it at current rate: 19 ml/kg/hour. Will draw next PTT in 6 hours at 0700.
--- NOTE | 2019-07-27 01:30 | Consultation ---
DATE OF CONSULTATION: 07/26/2019 CARDIAC CONSULTATION CONSULTING PHYSICIAN: Arthur New M.D. REFERRING PHYSICIAN: Mookie Ladd M.D., and Zeynep Sarkar M.D. REASON FOR REFERRAL: Chest pain. HISTORY OF PRESENT ILLNESS: This is a 49-year-old female with history of myocardial infarction and right coronary artery stenting back a number of years ago, who presented to the hospital because of chest pain. She describes the pain in the center of the chest radiating to the right arm. It is like indigestion followed by sharp shooting pains. The pains are intermittent and have been ongoing for approximately 7 days or so. She has really not identified any relieving or exacerbating factors, although she does feel that she is better when she stands up. When she takes a deep breath, the pains eventually resolved and/or with vomiting that the pain actually resolved as well. She is having the pain at the present time. She has had it several times today and in the past several days. PAST MEDICAL HISTORY: Positive for diabetes, high blood pressure, high cholesterol, and history of coronary artery disease with the last cardiac catheterization being performed in [address] [facility]. At that time, she had no significant disease of the LAD and circumflex artery had minimal intimal irregularities but no obstructive coronary artery disease, the right coronary artery was 100% occluded in the mid right coronary artery. The patient underwent percutaneous coronary intervention and a bare-metal stent was placed by Dr. Spear at that time. She was subsequently discharged. She lost her insurance 2 years ago. She stopped taking all of her medications except aspirin and omeprazole, and she has not seen a die trouble shooter for a number of years. REVIEW OF SYSTEMS: GASTROINTESTINAL: Positive for nausea and vomiting. No diarrhea or constipation. No bloody or black stool. GENITOURINARY: Negative. PULMONARY: Negative. CONSTITUTIONAL: Negative. NEUROLOGIC: Negative. PHYSICAL EXAMINATION: GENERAL: Shows to be a middle-aged female, in no respiratory distress. NECK: Supple. No jugular venous distention. LUNGS: Clear to auscultation and percussion. CARDIAC: S1 is normal. S2 is normal. Regular rhythm. No heaves, thrills, gallops, or rubs are noted. ABDOMEN: Soft, nontender. Positive bowel sounds. EXTREMITIES: There is no cyanosis nor is there any edema. NEUROLOGICAL: She is awake, alert, and responsive. LABORATORY VALUES: White count is 4.9, hemoglobin 15, and platelet count of 139,000. Sodium is 142, potassium 3.5, chloride 106, bicarb 24, BUN of 9, creatinine 0.7, glucose of 146, and calcium is 9.2. ProBNP is only 104. Lipase of 268 and PTT most recently is 53. Cardiac enzymes, troponin of 0.22, 0.239, 0.390, 0.289. CRP of approximately 104. The patient had a chest x-ray performed on the , which is yesterday shows no acute processes. Her electrocardiogram that she has had performed since being in the hospital has shown sinus rhythm with some T-wave abnormalities in several leads including inferolateral leads and that has been present on previous two separate occasions. Telemetry data has shown sinus rhythm and no other significant noted. An echocardiogram preliminary report shows ejection fraction of 65% to 70%, no significant valvular regurgitation, and normal left ventricular diastolic function. ASSESSMENT AND PLAN: 1. Chest pain. 2. Coronary artery disease coronary artery with a bare metal stent placement in 2013. 3. Diabetes mellitus. 4. Hypertension. 5. Hyperlipidemia. 6. Medication noncompliance. This patient was seen in cardiac consultation. The patient has some minor troponin abnormality; however, the troponin levels appear to be relatively flat without a significant rise, peak level. Nevertheless, she has continued to have the chest pain. She does have a history of coronary artery disease and noncompliance with medication. Her EKG will be repeated. She will receive nitroglycerin for management of her chest pains. Continuation of PPIs in the interim as the patient does seem to have some gastric component to her pain. Beta-blockers will be administered. EKG will be performed. This pain has been going on for approximately one week or so, yet the troponin only minimally abnormal indicated that maybe a component of it being coronary event is a possibility. Of note, the patient last had a myocardial infarction and was admitted here. At that time, she had troponin all the way up to 21.73 before being transferred for cardiac catheterization to [facility]. EKGs when compared to prior reports of 6 years ago do not show any significant ST depression; however, the T-wave inversion in the inferolateral leads appears to be new compared to before and not clear whether this was ongoing at some point recently or just new over the past few days. Further recommendations as become necessary. It is possible that the patient may require further invasive therapy depending on the level of her pain and recurrence and response to medication. Arthur New M.D. DR: Jordan JOB#: [id number] CC:
--- NOTE | 2019-07-27 02:45 | NUR ---
NURSE NOTES: ASSUMED CARE OF PATIENT AT THIS TIME. PATIENT RESTING IN BED, NO COMPLAINTS OF PAIN AT THIS TIME. FALL PRECAUTIONS IN PLACE.
--- NOTE | 2019-07-27 02:47 | NUR ---
HAND-OFF: Report given to MARY Nixon. Endorsed that per [facility], pt is at therapeutic range and no changes to be made to heparin drip at this time. Next pTT is at 0700.
[2019-07-27] MEDS: NovoLOG Insulin Flexpen SUBQ SCH ×4 (06:06→20:54)
--- NOTE | 2019-07-27 07:21 | NUR ---
NURSE NOTES: Received report from Tiffani. Observed pt sleeping, no s/sx of acute distress. Heparin drip running at 19 units/kg/hr. Pt breathing even and unlabored in RA. Bed on lowest position, call light within reach. Will continue plan of care.
--- NOTE | 2019-07-27 07:22 | NUR ---
HAND-OFF: Report given to Amelia DE JESUS RN. PATIENT RESTING IN BED, NO SIGNS OF BLEEDING OR DISTRESS NOTED.
[2019-07-27 08:00] VITALS: BP 142/74
[2019-07-27] MEDS: Metoprolol Tartrate 12.5mg TAB ORAL SCH ×2 (08:55→20:55)
[2019-07-27] MEDS: Aspirin Baby 81mg ORAL SCH (08:55)
[2019-07-27] MEDS: Nitroglycerin Subl 0.4mg tab SL PRN ×3 (08:56→22:36)
[2019-07-27 09:27] LABS: HEMATOCRIT 42.4 % (37.0-47.0); HEMOGLOBIN 14.8 G/DL (12.0-16.0); MEAN CORPUSCULAR VOLUME 95 FL (80-99); PLATELET COUNT 135 K/UL (150-450); RED BLOOD COUNT 4.48 M/UL (4.20-5.40); RED CELL DISTRIBUTION WIDTH 11.8 % (11.6-14.8); WHITE BLOOD COUNT 4.1 K/UL (4.8-10.8)
[2019-07-27] MEDS ORDERED: Heparin 25,000u/D5W 500ml 500 ML IV SCH ×2 (09:45→16:34)
[2019-07-27 10:18] LABS: ANION GAP 10 mmol/L (5-15); BLOOD UREA NITROGEN 6 mg/dL (7-18); CALCIUM 9.3 MG/DL (8.5-10.1); CARBON DIOXIDE 27 MMOL/L (21-32); CHLORIDE 109 MMOL/L (98-107); CREATININE 0.7 MG/DL (0.55-1.30); POTASSIUM 3.6 MMOL/L (3.5-5.1); SODIUM 146 MMOL/L (136-145)
[2019-07-27 12:00] VITALS: BP 141/72
--- NOTE | 2019-07-27 15:56 | Cardiology Progress Note ---
Assessment/Plan Assessment/Plan 1. Chest colleen /acs 2. Coronary artery disease right coronary artery with a bare metal stent placement in 2014. 3. Diabetes mellitus. 4. Hypertension. 5. Hyperlipidemia. 6. Medication noncompliance trop up to 1 d/w [facility] transfer center to put on transfer list no beds available at this time on iv heparin admission ekg t inversion inferiolatel lead previously cx only mild intimal irreg asa bb statin heparin will follow ppi ntp Subjective Cardiovascular: Reports: chest pain - occaisonl ; Denies: lightheadedness, palpitations Respiratory: Denies: shortness of breath Gastrointestinal/Abdominal: Denies: abdominal pain Genitourinary: Denies: burning Objective Last 24 Hour Vital Signs Date Time Temp Pulse Resp B/P (MAP) Pulse Ox O2 Delivery O2 Flow Rate FiO2 07/27/19 12:00 98.2 63 20 141/72 (95) 96 07/27/19 11:37 55 07/27/19 10:12 142/74 07/27/19 08:56 142/74 07/27/19 08:55 63 142/74 07/27/19 08:40 Room Air 07/27/19 08:00 98.2 63 20 142/74 (96) 97 07/27/19 07:47 62 07/27/19 04:00 60 07/27/19 00:00 55 07/27/19 00:00 98.3 56 18 118/86 (97) 96 07/26/19 21:00 Room Air 07/26/19 20:11 65 159/101 07/26/19 20:01 67 20 96 Room Air 21 07/26/19 20:00 98.1 65 21 159/101 (120) 96 07/26/19 20:00 60 07/26/19 17:46 131/79 07/26/19 16:32 59 07/26/19 16:00 97.5 62 20 131/79 (96) 95 General Appearance: no apparent distress, alert Neck: supple Cardiovascular: normal rate Respiratory/Chest: lungs clear Abdomen: normal bowel sounds, non tender, soft Extremities: no swelling Intake and Output 07/26/19 07/27/19 19:00 07:00 Intake Total 750 ml 146.510 ml Balance 750 ml 146.510 ml Intake Oral 750 ml IV Total 146.510 ml # Voids 2 1 Laboratory Tests Test 07/27/19 00:13 07/27/19 07:10 07/27/19 12:00 Activated Partial Thromboplast Time 77 SEC (23-33) H 100 SEC (23-33) H White Blood Count 4.1 K/UL (4.8-10.8) L Red Blood Count 4.48 M/UL (4.20-5.40) Hemoglobin 14.8 G/DL (12.0-16.0) Hematocrit 42.4 % (37.0-47.0) Mean Corpuscular Volume 95 FL (80-99) Mean Corpuscular Hemoglobin 33.0 PG (27.0-31.0) H Mean Corpuscular Hemoglobin Concent 34.8 G/DL (32.0-36.0) Red Cell Distribution Width 11.8 % (11.6-14.8) Platelet Count 135 K/UL (150-450) L Mean Platelet Volume 11.1 FL (6.5-10.1) H Neutrophils (%) (Auto) % (45.0-75.0) Lymphocytes (%) (Auto) % (20.0-45.0) Monocytes (%) (Auto) % (1.0-10.0) Eosinophils (%) (Auto) % (0.0-3.0) Basophils (%) (Auto) % (0.0-2.0) Differential Total Cells Counted 100 Neutrophils % (Manual) 38 % (45-75) L Lymphocytes % (Manual) 51 % (20-45) H Monocytes % (Manual) 10 % (1-10) Eosinophils % (Manual) 1 % (0-3) Basophils % (Manual) 0 % (0-2) Band Neutrophils 0 % (0-8) Platelet Estimate Decreased L Platelet Morphology Normal Red Blood Cell Morphology Normal Sodium Level 146 MMOL/L (136-145) H Potassium Level 3.6 MMOL/L (3.5-5.1) Chloride Level 109 MMOL/L (98-107) H Carbon Dioxide Level 27 MMOL/L (21-32) Anion Gap 10 mmol/L (5-15) Blood Urea Nitrogen 6 mg/dL (7-18) L Creatinine 0.7 MG/DL (0.55-1.30) Estimat Glomerular Filtration Rate > 60 mL/min (>60) Glucose Level 126 MG/DL (74-106) H Calcium Level 9.3 MG/DL (8.5-10.1) Troponin I 1.335 ng/mL (0.000-0.056) 1.071 ng/mL (0.000-0.056) Pro-B-Type Natriuretic Peptide 674 pg/mL (0-125) H Arthur New MD Jul 27, 2019 15:56
[2019-07-27 16:00] VITALS: BP 153/83
[2019-07-27] MEDS ORDERED: Heparin 5000 units/ml inj IV SCH (16:33)
--- NOTE | 2019-07-27 16:38 | Internal Med Progress Note ---
Subjective Date of Service: Jul 27, 2019 Physician Name Asif Orlando Attending Physician Mookie Ladd MD Current Medications Medications (Trade) Dose Ordered Sig/Stiven Route PRN Reason Start Time Stop Time Status Last Admin Dose Admin Acetaminophen (Tylenol) 650 mg Q4H PRN ORAL FEVER 07/25/19 11:45 08/24/19 11:44 07/25/19 21:52 Albuterol/ Ipratropium (Albuterol/ Ipratropium) 3 ml Q4H PRN HHN Shortness of Breath 07/25/19 11:45 07/30/19 11:44 Aspirin (ASA) 162 mg DAILY ORAL 07/26/19 09:00 08/25/19 08:59 07/27/19 08:55 Atorvastatin Calcium (Lipitor) 80 mg BEDTIME ORAL 07/26/19 21:00 08/25/19 20:59 07/26/19 20:10 Dextrose (Dextrose 50%) 25 ml Q30M PRN IV Hypoglycemia 07/25/19 11:45 08/24/19 11:44 Dextrose (Dextrose 50%) 50 ml Q30M PRN IV Hypoglycemia 07/25/19 11:45 08/24/19 11:44 Diltiazem HCl (Cardizem) 10 mg Q1H PRN IV heart rate more than 120, 07/25/19 11:45 08/24/19 11:44 Enalaprilat (Vasotec) 2.5 mg Q6H PRN IV sbp more than 160 07/25/19 11:45 08/24/19 11:44 Heparin Sodium (Porcine) (Heparin 5000 units/ml) 6,000 units ONCE IV 07/27/19 16:33 07/27/19 18:00 Heparin Sodium/ Dextrose 500 ml @ 32.387 mls/ hr ADJUST PER PROTOCOL IV 07/27/19 16:34 08/26/19 16:33 Insulin Aspart (NovoLOG) BEFORE MEALS AND HS SUBQ 07/25/19 16:30 08/24/19 16:29 07/25/19 21:10 Metoprolol Tartrate (Lopressor) 12.5 mg Q12HR ORAL 07/26/19 21:00 08/25/19 20:59 07/27/19 08:55 Nitroglycerin (Nitro-Bid) 1 inch TID@0600,1200,1800 TOPIC 07/27/19 18:00 08/26/19 17:59 Nitroglycerin (Ntg) 0.4 mg Q5M PRN SL Prn Chest Pain 07/25/19 11:45 08/24/19 11:44 07/27/19 10:12 Ondansetron HCl (Zofran) 4 mg Q6H PRN IVP Nausea & Vomiting 07/25/19 11:45 08/24/19 11:44 Pantoprazole (Protonix) 40 mg DAILY ORAL 07/26/19 09:00 08/25/19 08:59 07/27/19 08:55 Polyethylene Glycol (Miralax) 17 gm DAILYPRN PRN ORAL Constipation 07/25/19 11:45 08/24/19 11:44 Temazepam (Restoril) 15 mg HSPRN PRN ORAL Insomnia 07/25/19 11:45 08/01/19 11:44 Allergies: Coded Allergies: METFORMIN (Unverified Allergy, Unknown, 07/25/19) ROS Limited/Unobtainable: No Constitutional: Reports: no symptoms HEENT: Reports: no symptoms Cardiovascular: Reports: chest pain Respiratory: Reports: no symptoms Gastrointestinal/Abdominal: Reports: no symptoms Genitourinary: Reports: no symptoms Neurologic/Psychiatric: Reports: no symptoms Subjective 49 YO F with history of coronary artery dis admitted with chest pain. Now elevated troponin. Await Cardiology consult. Cover for Int Rafy-Dr Ladd Objective Last Vital Signs Date Time Temp Pulse Resp B/P (MAP) Pulse Ox O2 Delivery O2 Flow Rate FiO2 07/27/19 12:00 98.2 63 20 141/72 (95) 96 07/27/19 08:40 Room Air 07/26/19 20:01 21 Laboratory Tests Test 07/27/19 00:13 07/27/19 07:10 07/27/19 12:00 07/27/19 16:10 Activated Partial Thromboplast Time 77 SEC (23-33) H 100 SEC (23-33) H 38 SEC (23-33) H White Blood Count 4.1 K/UL (4.8-10.8) L Red Blood Count 4.48 M/UL (4.20-5.40) Hemoglobin 14.8 G/DL (12.0-16.0) Hematocrit 42.4 % (37.0-47.0) Mean Corpuscular Volume 95 FL (80-99) Mean Corpuscular Hemoglobin 33.0 PG (27.0-31.0) H Mean Corpuscular Hemoglobin Concent 34.8 G/DL (32.0-36.0) Red Cell Distribution Width 11.8 % (11.6-14.8) Platelet Count 135 K/UL (150-450) L Mean Platelet Volume 11.1 FL (6.5-10.1) H Neutrophils (%) (Auto) % (45.0-75.0) Lymphocytes (%) (Auto) % (20.0-45.0) Monocytes (%) (Auto) % (1.0-10.0) Eosinophils (%) (Auto) % (0.0-3.0) Basophils (%) (Auto) % (0.0-2.0) Differential Total Cells Counted 100 Neutrophils % (Manual) 38 % (45-75) L Lymphocytes % (Manual) 51 % (20-45) H Monocytes % (Manual) 10 % (1-10) Eosinophils % (Manual) 1 % (0-3) Basophils % (Manual) 0 % (0-2) Band Neutrophils 0 % (0-8) Platelet Estimate Decreased L Platelet Morphology Normal Red Blood Cell Morphology Normal Sodium Level 146 MMOL/L (136-145) H Potassium Level 3.6 MMOL/L (3.5-5.1) Chloride Level 109 MMOL/L (98-107) H Carbon Dioxide Level 27 MMOL/L (21-32) Anion Gap 10 mmol/L (5-15) Blood Urea Nitrogen 6 mg/dL (7-18) L Creatinine 0.7 MG/DL (0.55-1.30) Estimat Glomerular Filtration Rate > 60 mL/min (>60) Glucose Level 126 MG/DL (74-106) H Calcium Level 9.3 MG/DL (8.5-10.1) Troponin I 1.335 ng/mL (0.000-0.056) 1.071 ng/mL (0.000-0.056) Pro-B-Type Natriuretic Peptide 674 pg/mL (0-125) H Intake and Output 07/26/19 07/27/19 19:00 07:00 Intake Total 750 ml 146.510 ml Balance 750 ml 146.510 ml Intake Oral 750 ml IV Total 146.510 ml # Voids 2 1 Objective PHYSICAL EXAMINATION: GENERAL: The patient is well-developed, well-nourished female, in mild distress. HEENT: Eyes, pupils equal and responsive to light and accommodation. Extraocular movements are intact. NECK: Supple without lymphadenopathy. CHEST: Lungs are clear to auscultation bilaterally without wheezes or rales. CARDIOVASCULAR: Regular rate. S1 and S2 are normal without murmurs, rubs, or gallops. ABDOMEN: Soft, nontender, and nondistended. Positive bowel sounds. No evidence of hepatosplenomegaly. Currently, no rebound or guarding noted. EXTREMITIES: Negative for clubbing, cyanosis, or edema. RECTAL: Not performed. GENITAL: Not performed. NEUROLOGIC: Cranial nerves II through XII are grossly intact without focal deficits. Motor strength is 5/5 bilaterally. Deep tendon reflexes are 2+ plantar. Assessment/Plan Assessment/Plan ASSESSMENT: This is a 49-year-old female with: 1. Chest pain. 2. Elevated troponin level. 3. History of coronary artery disease. 4. Diabetes type 2. 5. Hypertension. 6. NSTEMI/acute coronary syndrome TREATMENT: 1. Chest pain/elevated troponin. A Cardiology consultation has been obtained with Dr. Arthur New. We will follow recommendations of Cardiology. 2. History of coronary artery disease. The patient is status post stent placement. The patient may require stress testing during this hospitalization. 3. Diabetes type 2. NovoLog sliding scale has been instituted. 4. Hypertension. Continue metoprolol and quinapril as above. 5. Transfer to [facility] when bed avail-see cardiology note Asif Orlando MD Jul 27, 2019 16:38
[2019-07-27] MEDS: Nitroglycerin 2% oint pkt TOPIC SCH (17:49)
[2019-07-27 20:00] VITALS: BP 109/70
--- NOTE | 2019-07-27 20:04 | NUR ---
HAND-OFF: Report given to MARY Keith. Endorsed plan of care.
--- NOTE | 2019-07-27 20:05 | NUR ---
NURSE NOTES: Received report from MARY Gaxiola. Pt A/O x4, breathing even and unlabored n RA. IV site on R AC 20g patent and asymptomatic, currently on Heparin drip 21 units/kg/hr. No s/sx of acute distress. bed in the lowest position, call light within reach. Will continue plan of care.
[2019-07-27] MEDS: Atorvastatin 80mg tab ORAL SCH (20:56)
--- NOTE | 2019-07-27 22:40 | NUR ---
NURSE NOTES: Pt complained of chest pain and asked for sublingual NG, administered it and she said it was "mostly relieved" and did not want another 5 minutes later. will continue to monitor pt
[2019-07-28] VITALS: BP 123/83
--- NOTE | 2019-07-28 00:35 | NUR ---
NURSE NOTES: Pt aPTT came back at a critical level of >150 (previously 39). Called [facility] and was told to hold the heparin drip for 1 hour. Will later restart at 0135 and begin at 17 ml/kg/hour per protocol and pipeline instruction. Will redraw aPTT 6 hours after rate change. No signs or symptoms of bleeding noted
[2019-07-28] MEDS ORDERED: Heparin 25,000u/D5W 500ml 500 ML IV SCH ×2 (00:45→01:45)
--- NOTE | 2019-07-28 01:45 | NUR ---
NURSE NOTES: restarted heparin drip at 17 units /kg/hour at a rate of 26 ml/hour. will continue to monitor pt and ordered a PTT to be drawn 6 hours from now.
[2019-07-28 04:00] VITALS: BP 135/77
[2019-07-28] MEDS: Nitroglycerin 2% oint pkt TOPIC SCH ×3 (05:45→17:19)
[2019-07-28] MEDS: NovoLOG Insulin Flexpen SUBQ SCH ×4 (05:51→21:00)
--- NOTE | 2019-07-28 07:11 | NUR ---
HAND-OFF: Report given to Min, RN
--- NOTE | 2019-07-28 07:15 | NUR ---
NURSE NOTES: Received report from Liana HERNANDEZ. Pt in bed awake and orientedx4. IV site in right hand 22G running with Heparin drip with rate of 17u/kr/hr and confirmed the next schedule for APTT @7:45am. No s/s of bleeding noted. Denied chest pain. Bed in lowest position and locked. Call light within easy reach. Will continue to plan of care.
[2019-07-28 08:00] VITALS: BP 137/92
[2019-07-28 08:33] LABS: HEMOGLOBIN 14.3 G/DL (12.0-16.0); MEAN CORPUSCULAR VOLUME 93 FL (80-99); PLATELET COUNT 128 K/UL (150-450); RED CELL DISTRIBUTION WIDTH 11.7 % (11.6-14.8); WHITE BLOOD COUNT 3.3 K/UL (4.8-10.8)
[2019-07-28 08:58] LABS: ANION GAP 12 mmol/L (5-15); BLOOD UREA NITROGEN 9 mg/dL (7-18); CALCIUM 9.2 MG/DL (8.5-10.1); CARBON DIOXIDE 26 MMOL/L (21-32); CHLORIDE 108 MMOL/L (98-107); CREATINE KINASE 32 U/L (26-308); CREATININE 0.9 MG/DL (0.55-1.30); POTASSIUM 3.6 MMOL/L (3.5-5.1); SODIUM 145 MMOL/L (136-145)
[2019-07-28] MEDS: Nitroglycerin Subl 0.4mg tab SL PRN (09:07)
[2019-07-28] MEDS: Aspirin Baby 81mg ORAL SCH (09:29)
[2019-07-28] MEDS: Metoprolol Tartrate 12.5mg TAB ORAL SCH ×2 (09:33→21:00)
[2019-07-28] MEDS: Heparin 25,000u/D5W 500ml 500 ML IV SCH (09:33)
--- NOTE | 2019-07-28 10:10 | NUR ---
NURSE NOTES: Made Dr. New aware of Trop-I with 0.376. No new orders received
[2019-07-28 11:58] VITALS: BP_SYST 121; BP_SYST 136; BP_DIAS 60; BP_DIAS 77
--- NOTE | 2019-07-28 14:16 | Internal Med Progress Note ---
Subjective Date of Service: Jul 28, 2019 Physician Name OrlandoAsif Attending Physician Mookie Ladd MD Current Medications Medications (Trade) Dose Ordered Sig/Stiven Route PRN Reason Start Time Stop Time Status Last Admin Dose Admin Acetaminophen (Tylenol) 650 mg Q4H PRN ORAL FEVER 07/25/19 11:45 08/24/19 11:44 07/25/19 21:52 Albuterol/ Ipratropium (Albuterol/ Ipratropium) 3 ml Q4H PRN HHN Shortness of Breath 07/25/19 11:45 07/30/19 11:44 Aspirin (ASA) 162 mg DAILY ORAL 07/26/19 09:00 08/25/19 08:59 07/28/19 09:29 Atorvastatin Calcium (Lipitor) 80 mg BEDTIME ORAL 07/26/19 21:00 08/25/19 20:59 07/27/19 20:56 Dextrose (Dextrose 50%) 25 ml Q30M PRN IV Hypoglycemia 07/25/19 11:45 08/24/19 11:44 Dextrose (Dextrose 50%) 50 ml Q30M PRN IV Hypoglycemia 07/25/19 11:45 08/24/19 11:44 Diltiazem HCl (Cardizem) 10 mg Q1H PRN IV heart rate more than 120, 07/25/19 11:45 08/24/19 11:44 Enalaprilat (Vasotec) 2.5 mg Q6H PRN IV sbp more than 160 07/25/19 11:45 08/24/19 11:44 Heparin Sodium/ Dextrose 500 ml @ 23.133 mls/ hr ADJUST PER PROTOCOL IV 07/28/19 09:00 08/27/19 08:59 07/28/19 09:33 Insulin Aspart (NovoLOG) BEFORE MEALS AND HS SUBQ 07/25/19 16:30 08/24/19 16:29 07/28/19 12:21 Metoprolol Tartrate (Lopressor) 12.5 mg Q12HR ORAL 07/26/19 21:00 08/25/19 20:59 07/28/19 09:33 Nitroglycerin (Nitro-Bid) 1 inch TID@0600,1200,1800 TOPIC 07/27/19 18:00 08/26/19 17:59 07/28/19 12:22 Nitroglycerin (Ntg) 0.4 mg Q5M PRN SL Prn Chest Pain 07/25/19 11:45 08/24/19 11:44 07/28/19 09:07 Ondansetron HCl (Zofran) 4 mg Q6H PRN IVP Nausea & Vomiting 07/25/19 11:45 08/24/19 11:44 Pantoprazole (Protonix) 40 mg DAILY ORAL 07/26/19 09:00 08/25/19 08:59 07/28/19 09:33 Polyethylene Glycol (Miralax) 17 gm DAILYPRN PRN ORAL Constipation 07/25/19 11:45 08/24/19 11:44 Temazepam (Restoril) 15 mg HSPRN PRN ORAL Insomnia 07/25/19 11:45 08/01/19 11:44 Allergies: Coded Allergies: METFORMIN (Unverified Allergy, Unknown, 07/25/19) ROS Limited/Unobtainable: No Constitutional: Reports: no symptoms HEENT: Reports: no symptoms Cardiovascular: Reports: chest pain Respiratory: Reports: no symptoms Gastrointestinal/Abdominal: Reports: no symptoms Genitourinary: Reports: no symptoms Neurologic/Psychiatric: Reports: no symptoms Subjective 49 YO F with history of coronary artery dis admitted with chest pain. Now elevated troponin. Await Cardiology consult. Cover for Int Med-Dr Ladd Objective Last Vital Signs Date Time Temp Pulse Resp B/P (MAP) Pulse Ox O2 Delivery O2 Flow Rate FiO2 07/28/19 12:22 136/77 07/28/19 12:00 55 07/28/19 11:58 98.1 18 97 07/28/19 11:04 Room Air 21 Laboratory Tests Test 07/27/19 16:10 07/27/19 23:45 07/28/19 08:00 Activated Partial Thromboplast Time 38 SEC (23-33) H > 150 SEC (23-33) *H 101 SEC (23-33) H White Blood Count 3.3 K/UL (4.8-10.8) L Red Blood Count 4.50 M/UL (4.20-5.40) Hemoglobin 14.3 G/DL (12.0-16.0) Hematocrit 42.0 % (37.0-47.0) Mean Corpuscular Volume 93 FL (80-99) Mean Corpuscular Hemoglobin 31.7 PG (27.0-31.0) H Mean Corpuscular Hemoglobin Concent 34.0 G/DL (32.0-36.0) Red Cell Distribution Width 11.7 % (11.6-14.8) Platelet Count 128 K/UL (150-450) L Mean Platelet Volume 11.6 FL (6.5-10.1) H Neutrophils (%) (Auto) % (45.0-75.0) Lymphocytes (%) (Auto) % (20.0-45.0) Monocytes (%) (Auto) % (1.0-10.0) Eosinophils (%) (Auto) % (0.0-3.0) Basophils (%) (Auto) % (0.0-2.0) Differential Total Cells Counted 100 Neutrophils % (Manual) 62 % (45-75) Lymphocytes % (Manual) 31 % (20-45) Monocytes % (Manual) 6 % (1-10) Eosinophils % (Manual) 1 % (0-3) Basophils % (Manual) 0 % (0-2) Band Neutrophils 0 % (0-8) Platelet Estimate Decreased L Platelet Morphology Normal Red Blood Cell Morphology Normal Prothrombin Time 10.2 SEC (9.30-11.50) Prothromb Time International Ratio 1.0 (0.9-1.1) Sodium Level 145 MMOL/L (136-145) Potassium Level 3.6 MMOL/L (3.5-5.1) Chloride Level 108 MMOL/L (98-107) H Carbon Dioxide Level 26 MMOL/L (21-32) Anion Gap 12 mmol/L (5-15) Blood Urea Nitrogen 9 mg/dL (7-18) Creatinine 0.9 MG/DL (0.55-1.30) Estimat Glomerular Filtration Rate > 60 mL/min (>60) Glucose Level 158 MG/DL (74-106) H Calcium Level 9.2 MG/DL (8.5-10.1) Total Creatine Kinase 32 U/L (26-308) Troponin I 0.376 ng/mL (0.000-0.056) Pro-B-Type Natriuretic Peptide 593 pg/mL (0-125) H Intake and Output 07/27/19 07/28/19 19:00 07:00 Intake Total 720 ml Balance 720 ml Intake Oral 720 ml # Voids 4 3 Objective PHYSICAL EXAMINATION: GENERAL: The patient is well-developed, well-nourished female, in mild distress. HEENT: Eyes, pupils equal and responsive to light and accommodation. Extraocular movements are intact. NECK: Supple without lymphadenopathy. CHEST: Lungs are clear to auscultation bilaterally without wheezes or rales. CARDIOVASCULAR: Regular rate. S1 and S2 are normal without murmurs, rubs, or gallops. ABDOMEN: Soft, nontender, and nondistended. Positive bowel sounds. No evidence of hepatosplenomegaly. Currently, no rebound or guarding noted. EXTREMITIES: Negative for clubbing, cyanosis, or edema. RECTAL: Not performed. GENITAL: Not performed. NEUROLOGIC: Cranial nerves II through XII are grossly intact without focal deficits. Motor strength is 5/5 bilaterally. Deep tendon reflexes are 2+ plantar. Assessment/Plan Assessment/Plan ASSESSMENT: This is a 49-year-old female with: 1. Chest pain. 2. Elevated troponin level. 3. History of coronary artery disease. 4. Diabetes type 2. 5. Hypertension. 6. NSTEMI/acute coronary syndrome TREATMENT: 1. Chest pain/elevated troponin. A Cardiology consultation has been obtained with Dr. Arthur New. We will follow recommendations of Cardiology. 2. History of coronary artery disease. The patient is status post stent placement. The patient may require stress testing during this hospitalization. 3. Diabetes type 2. NovoLog sliding scale has been instituted. 4. Hypertension. Continue metoprolol and quinapril as above. 5. Transfer to [facility] when bed avail-see cardiology note Asif Orlando MD Jul 28, 2019 14:16
[2019-07-28 16:00] VITALS: BP 139/78
--- NOTE | 2019-07-28 16:06 | Cardiology Progress Note ---
Assessment/Plan Assessment/Plan 1. Chest colleen /acs 2. Coronary artery disease right coronary artery with a bare metal stent placement in 2014. 3. Diabetes mellitus. 4. Hypertension. 5. Hyperlipidemia. 6. Medication noncompliance trop trendign down despite soem pain will repeat in am tele sinus d/w [facility] transfer center no beds yest on iv heparin admission ekg t inversion inferolateral lead previously cx only mild intimal irreg ? if jackelyn rca stetn stenosed asa bb statin heparin will follow ppi ntp Subjective Cardiovascular: Reports: chest pain Objective Last 24 Hour Vital Signs Date Time Temp Pulse Resp B/P (MAP) Pulse Ox O2 Delivery O2 Flow Rate FiO2 07/28/19 12:22 136/77 07/28/19 12:00 55 07/28/19 11:58 98.1 57 18 136/77 (96) 97 07/28/19 11:04 56 20 97 Room Air 21 07/28/19 09:33 55 137/92 07/28/19 09:07 137/92 07/28/19 09:00 Room Air 07/28/19 08:00 58 07/28/19 08:00 97.9 55 18 137/92 (107) 97 07/28/19 05:45 135/77 07/28/19 04:29 67 07/28/19 04:00 98.1 60 18 135/77 (96) 97 07/28/19 00:00 97.6 67 16 123/83 (96) 98 07/28/19 00:00 59 07/27/19 22:36 130/86 07/27/19 20:55 59 109/70 07/27/19 20:08 Room Air 07/27/19 20:00 98.3 65 16 109/70 (83) 94 07/27/19 20:00 68 07/27/19 19:45 64 18 98 Room Air 21 07/27/19 17:49 141/72 07/27/19 16:35 58 Intake and Output 07/27/19 07/28/19 19:00 07:00 Intake Total 720 ml Balance 720 ml Intake Oral 720 ml # Voids 4 3 Laboratory Tests Test 07/27/19 16:10 07/27/19 23:45 07/28/19 08:00 07/28/19 15:30 Activated Partial Thromboplast Time 38 SEC (23-33) H > 150 SEC (23-33) *H 101 SEC (23-33) H Pending White Blood Count 3.3 K/UL (4.8-10.8) L Red Blood Count 4.50 M/UL (4.20-5.40) Hemoglobin 14.3 G/DL (12.0-16.0) Hematocrit 42.0 % (37.0-47.0) Mean Corpuscular Volume 93 FL (80-99) Mean Corpuscular Hemoglobin 31.7 PG (27.0-31.0) H Mean Corpuscular Hemoglobin Concent 34.0 G/DL (32.0-36.0) Red Cell Distribution Width 11.7 % (11.6-14.8) Platelet Count 128 K/UL (150-450) L Mean Platelet Volume 11.6 FL (6.5-10.1) H Neutrophils (%) (Auto) % (45.0-75.0) Lymphocytes (%) (Auto) % (20.0-45.0) Monocytes (%) (Auto) % (1.0-10.0) Eosinophils (%) (Auto) % (0.0-3.0) Basophils (%) (Auto) % (0.0-2.0) Differential Total Cells Counted 100 Neutrophils % (Manual) 62 % (45-75) Lymphocytes % (Manual) 31 % (20-45) Monocytes % (Manual) 6 % (1-10) Eosinophils % (Manual) 1 % (0-3) Basophils % (Manual) 0 % (0-2) Band Neutrophils 0 % (0-8) Platelet Estimate Decreased L Platelet Morphology Normal Red Blood Cell Morphology Normal Prothrombin Time 10.2 SEC (9.30-11.50) Prothromb Time International Ratio 1.0 (0.9-1.1) Sodium Level 145 MMOL/L (136-145) Potassium Level 3.6 MMOL/L (3.5-5.1) Chloride Level 108 MMOL/L (98-107) H Carbon Dioxide Level 26 MMOL/L (21-32) Anion Gap 12 mmol/L (5-15) Blood Urea Nitrogen 9 mg/dL (7-18) Creatinine 0.9 MG/DL (0.55-1.30) Estimat Glomerular Filtration Rate > 60 mL/min (>60) Glucose Level 158 MG/DL (74-106) H Calcium Level 9.2 MG/DL (8.5-10.1) Total Creatine Kinase 32 U/L (26-308) Troponin I 0.376 ng/mL (0.000-0.056) Pro-B-Type Natriuretic Peptide 593 pg/mL (0-125) H Arthur New MD Jul 28, 2019 16:06
--- NOTE | 2019-07-28 19:20 | NUR ---
HAND-OFF: Report given to Tiffani HERNANDEZ. Pt remains stable.
--- NOTE | 2019-07-28 19:29 | NUR ---
NURSE NOTES: RECEIVED PATIENT RESTING IN BED, NO COMPLAINTS OF PAIN AT THIS TIME. FALL PRECAUTIONS IN PLACE: CALL LIGHT, BEDSIDE TABEL AND COMMODE WITHIN REACH, BED IN LOW POSITION AND BED ALARM ON. PLAN OF CARE REVIEWED.
[2019-07-28 20:00] VITALS: BP 116/76
[2019-07-28] MEDS: Atorvastatin 80mg tab ORAL SCH (21:52)
[2019-07-29] VITALS: BP 135/70
[2019-07-29 04:00] VITALS: BP 139/76
[2019-07-29] MEDS: Heparin 25,000u/D5W 500ml 500 ML IV SCH ×2 (04:39→23:15)
[2019-07-29] MEDS: Nitroglycerin 2% oint pkt TOPIC SCH ×3 (05:30→17:37)
[2019-07-29] MEDS: NovoLOG Insulin Flexpen SUBQ SCH ×4 (06:30→20:59)
--- NOTE | 2019-07-29 06:49 | NUR ---
NURSE NOTES: PTT 68. NEXT PTT TOMORROW AM
--- NOTE | 2019-07-29 07:14 | NUR ---
NURSE NOTES: Received report from Tiffani HERNANDEZ. Pt in bed awake an orientedx4. On room air. Call light within easy reach. Bed in lowest position and locked. IV site R hand 20G running with IV Heparin 15u/kg/hr patent and asymptomatic. Will continue to plan of care.
--- NOTE | 2019-07-29 07:14 | NUR ---
HAND-OFF: Report given to Amelia DIALLO RN.PATIENT RESTING IN BED, NO SIGNS OF DISTRESS NOTED.
[2019-07-29 08:00] VITALS: BP 146/81
[2019-07-29] MEDS: Aspirin Baby 81mg ORAL SCH (08:43)
[2019-07-29] MEDS: Metoprolol Tartrate 12.5mg TAB ORAL SCH ×2 (08:43→20:58)
[2019-07-29] MEDS: Nitroglycerin Subl 0.4mg tab SL PRN ×2 (10:16→14:28)
--- NOTE | 2019-07-29 11:53 | NUR ---
TRANSFER UPDATE: SPOKE TO ASHLEY FROM [facility] AT THIS TIME NO BEDS AVAILABLE
[2019-07-29 12:00] VITALS: BP 153/81
--- NOTE | 2019-07-29 12:26 | Pulmonology Progress Note ---
Assessment/Plan Problems: (1) ACS (acute coronary syndrome) (2) History of UT (myocardial infarction) (3) Stented coronary artery (4) History of diabetes mellitus (5) History of hypertension Assessment/Plan awaiting for a bed at [facility], check troponin Aspirin, echocardiogram reviewed, EF is 65-70% siding scale symptomatic treatment dvt prophylaxis. Subjective ROS Limited/Unobtainable: No Interval Events: doing ok on heparin drip Allergies: Coded Allergies: METFORMIN (Unverified Allergy, Unknown, 07/25/19) Objective Last 24 Hour Vital Signs Date Time Temp Pulse Resp B/P (MAP) Pulse Ox O2 Delivery O2 Flow Rate FiO2 07/29/19 12:07 153/81 07/29/19 12:00 98.2 55 20 153/81 (105) 97 07/29/19 10:16 146/81 07/29/19 09:00 Room Air 07/29/19 08:43 65 146/81 07/29/19 08:00 61 07/29/19 08:00 98.0 65 18 146/81 (102) 98 07/29/19 05:30 139/76 07/29/19 04:00 58 07/29/19 04:00 97.3 56 18 139/76 (97) 95 07/29/19 00:00 59 07/29/19 00:00 97.2 59 20 135/70 (91) 98 07/28/19 21:00 Room Air 07/28/19 21:00 57 116/76 07/28/19 20:00 66 07/28/19 20:00 98.4 58 20 116/76 (89) 100 07/28/19 19:50 63 18 98 Room Air 21 07/28/19 17:19 139/78 07/28/19 16:00 58 07/28/19 16:00 98.4 63 20 139/78 (98) 98 Intake and Output 07/28/19 07/29/19 19:00 07:00 Intake Total 1360.633 ml 517.596 ml Balance 1360.633 ml 517.596 ml Intake Oral 1100 ml 240 ml IV Total 260.633 ml 277.596 ml # Voids 3 2 General Appearance: WD/WN HEENT: normocephalic, atraumatic Respiratory/Chest: chest wall non-tender, lungs clear Breasts: no masses Cardiovascular: normal peripheral pulses Abdomen: normal bowel sounds, soft, non tender Genitourinary: normal external genitalia Extremities: no clubbing Skin: no rash Neurologic/Psychiatric: manager wastewater II-XII grossly normal Laboratory Tests 07/28/19 15:00: Activated Partial Thromboplast Time 66H 07/29/19 04:05: Activated Partial Thromboplast Time 68H Current Medications Medications (Trade) Dose Ordered Sig/Stiven Route PRN Reason Start Time Stop Time Status Last Admin Dose Admin Acetaminophen (Tylenol) 650 mg Q4H PRN ORAL FEVER 07/25/19 11:45 08/24/19 11:44 07/25/19 21:52 Albuterol/ Ipratropium (Albuterol/ Ipratropium) 3 ml Q4H PRN HHN Shortness of Breath 07/25/19 11:45 07/30/19 11:44 Aspirin (ASA) 162 mg DAILY ORAL 07/26/19 09:00 08/25/19 08:59 07/29/19 08:43 Atorvastatin Calcium (Lipitor) 80 mg BEDTIME ORAL 07/26/19 21:00 08/25/19 20:59 07/28/19 21:52 Dextrose (Dextrose 50%) 25 ml Q30M PRN IV Hypoglycemia 07/25/19 11:45 08/24/19 11:44 Dextrose (Dextrose 50%) 50 ml Q30M PRN IV Hypoglycemia 07/25/19 11:45 08/24/19 11:44 Diltiazem HCl (Cardizem) 10 mg Q1H PRN IV heart rate more than 120, 07/25/19 11:45 08/24/19 11:44 Enalaprilat (Vasotec) 2.5 mg Q6H PRN IV sbp more than 160 07/25/19 11:45 08/24/19 11:44 Heparin Sodium/ Dextrose 500 ml @ 23.133 mls/ hr ADJUST PER PROTOCOL IV 07/28/19 09:00 08/27/19 08:59 07/29/19 04:39 Insulin Aspart (NovoLOG) BEFORE MEALS AND HS SUBQ 07/25/19 16:30 08/24/19 16:29 07/28/19 17:20 Metoprolol Tartrate (Lopressor) 12.5 mg Q12HR ORAL 07/26/19 21:00 08/25/19 20:59 07/29/19 08:43 Nitroglycerin (Nitro-Bid) 1 inch TID@0600,1200,1800 TOPIC 07/27/19 18:00 08/26/19 17:59 07/29/19 12:07 Nitroglycerin (Ntg) 0.4 mg Q5M PRN SL Prn Chest Pain 07/25/19 11:45 08/24/19 11:44 07/29/19 10:16 Ondansetron HCl (Zofran) 4 mg Q6H PRN IVP Nausea & Vomiting 07/25/19 11:45 08/24/19 11:44 Pantoprazole (Protonix) 40 mg DAILY ORAL 07/26/19 09:00 08/25/19 08:59 07/29/19 08:43 Polyethylene Glycol (Miralax) 17 gm DAILYPRN PRN ORAL Constipation 07/25/19 11:45 08/24/19 11:44 Temazepam (Restoril) 15 mg HSPRN PRN ORAL Insomnia 07/25/19 11:45 08/01/19 11:44 Zeynep Sarkar MD Jul 29, 2019 12:26
--- NOTE | 2019-07-29 13:52 | NUR ---
CASE MANAGEMENT: REVIEW 07/27/19 SI: CAD . HTN . DM II . HX: [place] . STENT 2014 98.2 63 20 141/72 96% ON RA TROP 1.335- 1.071 BNP 674 NA+ 146 CL 109 IS: HEPARIN GTT NITRO-BID TP TID NTG SL Q5M ASA PO QD LOPRESSOR PO BID LIPITOR PO QHS NOVOLOG SQ AC&HS \: 2E TELE UNIT CASE MANAGEMENT: REVIEW 07/28/19 SI: CAD . HTN . DM II . HX: [place] . STENT 2014 98.1 57 18 136/77 97% ON RA TROP 0.376 CL 108 BG 158 BNP 593 IS: HEPARIN GTT NITRO-BID TP TID NTG SL Q5M ASA PO QD LOPRESSOR PO BID LIPITOR PO QHS NOVOLOG SQ AC&HS \: 2E TELE UNIT CASE MANAGEMENT: REVIEW 07/29/19 SI: CHEST PAIN . ACS . HTN . ELEVATED TROP . DM II HX: [place] . STENT 2014 98.2 55 20 153/81 97% ON RA IS:HEPARIN GTT ASA PO QD NTG Q5M/PRN PROTONIX PO QD TYLENOL PO Q4/PRN \: 2E TELE UNIT PLAN: PATIENT NEEDS OUTSIDE HEART CATH
--- NOTE | 2019-07-29 14:08 | NUR ---
TRANSFER UPDATE: NO BEDS AT [place] PATIENT REFERRED TO HUMBERTO @ [facility] F: [phone] T: [phone]
[2019-07-29 16:00] VITALS: BP 120/72
--- NOTE | 2019-07-29 19:13 | Internal Med Progress Note ---
Subjective Date of Service: Jul 29, 2019 Physician Name JohannyAsif Attending Physician Mookie Ladd MD Current Medications Medications (Trade) Dose Ordered Sig/Stiven Route PRN Reason Start Time Stop Time Status Last Admin Dose Admin Acetaminophen (Tylenol) 650 mg Q4H PRN ORAL FEVER 07/25/19 11:45 08/24/19 11:44 07/25/19 21:52 Albuterol/ Ipratropium (Albuterol/ Ipratropium) 3 ml Q4H PRN HHN Shortness of Breath 07/25/19 11:45 07/30/19 11:44 Aspirin (ASA) 162 mg DAILY ORAL 07/26/19 09:00 08/25/19 08:59 07/29/19 08:43 Atorvastatin Calcium (Lipitor) 80 mg BEDTIME ORAL 07/26/19 21:00 08/25/19 20:59 07/28/19 21:52 Dextrose (Dextrose 50%) 25 ml Q30M PRN IV Hypoglycemia 07/25/19 11:45 08/24/19 11:44 Dextrose (Dextrose 50%) 50 ml Q30M PRN IV Hypoglycemia 07/25/19 11:45 08/24/19 11:44 Diltiazem HCl (Cardizem) 10 mg Q1H PRN IV heart rate more than 120, 07/25/19 11:45 08/24/19 11:44 Enalaprilat (Vasotec) 2.5 mg Q6H PRN IV sbp more than 160 07/25/19 11:45 08/24/19 11:44 Heparin Sodium/ Dextrose 500 ml @ 23.133 mls/ hr ADJUST PER PROTOCOL IV 07/28/19 09:00 08/27/19 08:59 07/29/19 04:39 Insulin Aspart (NovoLOG) BEFORE MEALS AND HS SUBQ 07/25/19 16:30 08/24/19 16:29 07/28/19 17:20 Metoprolol Tartrate (Lopressor) 12.5 mg Q12HR ORAL 07/26/19 21:00 08/25/19 20:59 07/29/19 08:43 Nitroglycerin (Nitro-Bid) 1 inch TID@0600,1200,1800 TOPIC 07/27/19 18:00 08/26/19 17:59 07/29/19 17:37 Nitroglycerin (Ntg) 0.4 mg Q5M PRN SL Prn Chest Pain 07/25/19 11:45 08/24/19 11:44 07/29/19 14:28 Ondansetron HCl (Zofran) 4 mg Q6H PRN IVP Nausea & Vomiting 07/25/19 11:45 08/24/19 11:44 Pantoprazole (Protonix) 40 mg DAILY ORAL 07/26/19 09:00 08/25/19 08:59 07/29/19 08:43 Polyethylene Glycol (Miralax) 17 gm DAILYPRN PRN ORAL Constipation 07/25/19 11:45 08/24/19 11:44 Temazepam (Restoril) 15 mg HSPRN PRN ORAL Insomnia 07/25/19 11:45 08/01/19 11:44 Allergies: Coded Allergies: METFORMIN (Unverified Allergy, Unknown, 07/25/19) ROS Limited/Unobtainable: No Constitutional: Reports: no symptoms HEENT: Reports: no symptoms Cardiovascular: Reports: chest pain Respiratory: Reports: no symptoms Gastrointestinal/Abdominal: Reports: no symptoms Genitourinary: Reports: no symptoms Neurologic/Psychiatric: Reports: no symptoms Subjective 49 YO F with history of coronary artery dis admitted with chest pain. Now elevated troponin. Await Cardiology consult. Cover for Int Med-Dr Ladd Objective Last Vital Signs Date Time Temp Pulse Resp B/P (MAP) Pulse Ox O2 Delivery O2 Flow Rate FiO2 07/29/19 17:37 120/72 07/29/19 16:00 60 07/29/19 16:00 98.4 20 95 07/29/19 09:10 Room Air 21 Laboratory Tests Test 07/29/19 04:05 Activated Partial Thromboplast Time 68 SEC (23-33) H Intake and Output 07/28/19 07/29/19 19:00 07:00 Intake Total 1360.633 ml 517.596 ml Balance 1360.633 ml 517.596 ml Intake Oral 1100 ml 240 ml IV Total 260.633 ml 277.596 ml # Voids 3 2 Objective PHYSICAL EXAMINATION: GENERAL: The patient is well-developed, well-nourished female, in mild distress. HEENT: Eyes, pupils equal and responsive to light and accommodation. Extraocular movements are intact. NECK: Supple without lymphadenopathy. CHEST: Lungs are clear to auscultation bilaterally without wheezes or rales. CARDIOVASCULAR: Regular rate. S1 and S2 are normal without murmurs, rubs, or gallops. ABDOMEN: Soft, nontender, and nondistended. Positive bowel sounds. No evidence of hepatosplenomegaly. Currently, no rebound or guarding noted. EXTREMITIES: Negative for clubbing, cyanosis, or edema. RECTAL: Not performed. GENITAL: Not performed. NEUROLOGIC: Cranial nerves II through XII are grossly intact without focal deficits. Motor strength is 5/5 bilaterally. Deep tendon reflexes are 2+ plantar. Assessment/Plan Assessment/Plan ASSESSMENT: This is a 49-year-old female with: 1. Chest pain. 2. Elevated troponin level. 3. History of coronary artery disease. 4. Diabetes type 2. 5. Hypertension. 6. NSTEMI/acute coronary syndrome TREATMENT: 1. Chest pain/elevated troponin. A Cardiology consultation has been obtained with Dr. Arthur New. We will follow recommendations of Cardiology. 2. History of coronary artery disease. The patient is status post stent placement. The patient may require stress testing during this hospitalization. 3. Diabetes type 2. NovoLog sliding scale has been instituted. 4. Hypertension. Continue metoprolol and quinapril as above. 5. Transfer to [facility] when bed avail-see cardiology note Asif Orlando MD Jul 29, 2019 19:13
--- NOTE | 2019-07-29 19:28 | NUR ---
HAND-OFF: Report given to Tashi HERNANDEZ. Pt remains stable.
--- NOTE | 2019-07-29 19:30 | NUR ---
NURSE NOTES: Received report from MARY Milligan
--- NOTE | 2019-07-29 19:32 | NUR ---
NURSE NOTES: Initial rounding done. pt resting in bed, no acute cv c/o noted, denies chest pain, resp even. Heparin drip infusing well at 15 U/kg/hr, setting checked & verified. IV right hand intact/patent. no further needs noted at this moment, call light w/in reach.
[2019-07-29 20:00] VITALS: BP 117/73
[2019-07-29] MEDS: Atorvastatin 80mg tab ORAL SCH (20:57)
--- NOTE | 2019-07-29 23:15 | NUR ---
NURSE NOTES: Hang new bag of Heparin drip, setting checked and verified by MARY Avalos. IV to right hand remains intact/patent. no c/o chest pain at this time.
[2019-07-30] VITALS: BP 127/74
--- NOTE | 2019-07-30 03:05 | NUR ---
NURSE NOTES: Received a call from Jane yee [facility] for transfer update. No bed at this moment, pt on the list for the next bed available per Jane.
[2019-07-30 04:00] VITALS: BP 132/60
[2019-07-30 04:39] LABS: BASOPHILS % (AUTO) 1.5 % (0.0-2.0); EOSINOPHILS % (AUTO) 1.6 % (0.0-3.0); HEMATOCRIT 41.4 % (37.0-47.0); HEMOGLOBIN 13.9 G/DL (12.0-16.0); LYMPHOCYTES % (AUTO) 38.7 % (20.0-45.0); MEAN CORPUSCULAR VOLUME 96 FL (80-99); MONOCYTES % (AUTO) 6.1 % (1.0-10.0); NEUTROPHILS % (AUTO) 52.1 % (45.0-75.0); PLATELET COUNT 143 K/UL (150-450); RED BLOOD COUNT 4.32 M/UL (4.20-5.40); RED CELL DISTRIBUTION WIDTH 13.7 % (11.6-14.8); WHITE BLOOD COUNT 4.7 K/UL (4.8-10.8)
[2019-07-30 05:14] LABS: ANION GAP 8 mmol/L (5-15); BLOOD UREA NITROGEN 14 mg/dL (7-18); CARBON DIOXIDE 27 MMOL/L (21-32); CHLORIDE 112 MMOL/L (98-107); CREATININE 0.8 MG/DL (0.55-1.30); SODIUM 147 MMOL/L (136-145)
[2019-07-30] MEDS: Nitroglycerin 2% oint pkt TOPIC SCH ×3 (05:34→17:22)
[2019-07-30] MEDS: NovoLOG Insulin Flexpen SUBQ SCH ×3 (05:43→17:23)
[2019-07-30] MEDS ORDERED: Heparin 25,000u/D5W 500ml 500 ML IV SCH ×2 (05:45→13:34)
[2019-07-30] MEDS ORDERED: Heparin 5000 units/ml inj IV SCH (05:45)
--- NOTE | 2019-07-30 07:16 | NUR ---
HAND-OFF: Report given to Srini Jones RN.
--- NOTE | 2019-07-30 07:16 | NUR ---
NURSE NOTES: Received report from Tashi HERNANDEZ. Pt in bed awake and orientedx4 and able to make needs known. IV site in right hand 22G running with heparin drip with 17u/kg/hr patent and asymptomatic. On room air. Side railsx2 up for safety. Bed in lowest position and locked. Call light within easy each. Denied chest pain. Will continue to plan of care.
[2019-07-30 07:43] VITALS: BP 136/80
[2019-07-30] MEDS: Metoprolol Tartrate 12.5mg TAB ORAL SCH (08:48)
[2019-07-30] MEDS: Aspirin Baby 81mg ORAL SCH (08:49)
[2019-07-30] MEDS: Nitroglycerin Subl 0.4mg tab SL PRN (08:58)
--- NOTE | 2019-07-30 09:45 | Cardiology Progress Note ---
Assessment/Plan Assessment/Plan 1. Chest colleen /acs 2. Coronary artery disease right coronary artery with a bare metal stent placement in 2014. 3. Diabetes mellitus. 4. Hypertension. 5. Hyperlipidemia. 6. Medication noncompliance trop seem down trend tele sinus d/w [facility] no beds as of 07/30 even thought is on the sched fopr cath on iv heparin admission ekg t inversion inferolateral lead previously cx only mild intimal irreg ? if jackelyn rca stetn stenosed asa bb statin heparin will follow ppi ntp contineu s to have intermittent chest pain i discussed with [facility] no bed [facility] yest apryl guzman ia asked then to look into any other facility in light of intermittent chest and abn trop canno perform stress test Subjective Cardiovascular: Reports: chest pain; Denies: lightheadedness, palpitations Respiratory: Denies: shortness of breath Gastrointestinal/Abdominal: Denies: abdominal pain Genitourinary: Denies: burning Objective Last 24 Hour Vital Signs Date Time Temp Pulse Resp B/P (MAP) Pulse Ox O2 Delivery O2 Flow Rate FiO2 07/30/19 08:58 136/80 07/30/19 08:48 63 136/80 07/30/19 07:43 97.9 63 18 136/80 (98) 96 07/30/19 05:34 132/60 07/30/19 04:00 59 07/30/19 04:00 96.8 54 20 132/60 (84) 95 07/30/19 00:00 97.7 62 20 127/74 (91) 96 07/30/19 00:00 60 07/29/19 21:00 Room Air 07/29/19 20:58 67 117/73 07/29/19 20:00 66 07/29/19 20:00 98.2 59 20 117/73 (88) 95 07/29/19 19:51 55 18 98 Room Air 21 07/29/19 17:37 120/72 07/29/19 16:00 60 07/29/19 16:00 98.4 57 20 120/72 (88) 95 07/29/19 14:28 153/81 07/29/19 12:07 153/81 07/29/19 12:00 52 2/24/20 12:00 98.2 55 20 153/81 (105) 97 07/29/19 10:16 146/81 General Appearance: no apparent distress, alert Cardiovascular: normal rate Respiratory/Chest: lungs clear Abdomen: normal bowel sounds, non tender, soft Extremities: no swelling Intake and Output 07/29/19 07/30/19 19:00 07:00 Intake Total 757.596 ml 231.330 ml Balance 757.596 ml 231.330 ml Intake Oral 480 ml IV Total 277.596 ml 231.330 ml # Voids 3 3 Laboratory Tests Test 07/30/19 04:00 White Blood Count 4.7 K/UL (4.8-10.8) L Red Blood Count 4.32 M/UL (4.20-5.40) Hemoglobin 13.9 G/DL (12.0-16.0) Hematocrit 41.4 % (37.0-47.0) Mean Corpuscular Volume 96 FL (80-99) Mean Corpuscular Hemoglobin 32.0 PG (27.0-31.0) H Mean Corpuscular Hemoglobin Concent 33.5 G/DL (32.0-36.0) Red Cell Distribution Width 13.7 % (11.6-14.8) Platelet Count 143 K/UL (150-450) L Mean Platelet Volume 13.8 FL (6.5-10.1) H Neutrophils (%) (Auto) 52.1 % (45.0-75.0) Lymphocytes (%) (Auto) 38.7 % (20.0-45.0) Monocytes (%) (Auto) 6.1 % (1.0-10.0) Eosinophils (%) (Auto) 1.6 % (0.0-3.0) Basophils (%) (Auto) 1.5 % (0.0-2.0) Activated Partial Thromboplast Time 63 SEC (23-33) H Sodium Level 147 MMOL/L (136-145) H Potassium Level 4.0 MMOL/L (3.5-5.1) Chloride Level 112 MMOL/L (98-107) H Carbon Dioxide Level 27 MMOL/L (21-32) Anion Gap 8 mmol/L (5-15) Blood Urea Nitrogen 14 mg/dL (7-18) Creatinine 0.8 MG/DL (0.55-1.30) Estimat Glomerular Filtration Rate > 60 mL/min (>60) Glucose Level 145 MG/DL (74-106) H Calcium Level 9.0 MG/DL (8.5-10.1) Troponin I 0.266 ng/mL (0.000-0.056) Arthur New MD Jul 30, 2019 09:45
[2019-07-30 11:59] VITALS: BP 131/78
--- NOTE | 2019-07-30 12:11 | NUR ---
CASE MANAGEMENT: REVIEW 07/30/19 SI: CHEST PAIN . ACS . HTN . ELEVATED TROP . DM II HX: [place] . STENT 2014 97.9 55 15 131/78 98% ON RA TROP 0.266 WBC 4.7 NA+ 147 BG 145 IS:HEPARIN GTT ASA PO QD NTG Q5M/PRN PROTONIX PO QD TYLENOL PO Q4/PRN \: 2E TELE UNIT PLAN: PATIENT NEEDS OUTSIDE HEART CATH CLINICALS SEND TO [facility] AND [facility] WAITING FOR CLEARANCE
[2019-07-30 16:00] VITALS: BP 146/79
[2019-07-30 17:22] VITALS: BP 146/79
--- NOTE | 2019-07-30 19:20 | Internal Med Progress Note ---
Subjective Date of Service: Jul 30, 2019 Physician Name JohannyAsif Attending Physician Mookie Ladd MD Current Medications Medications (Trade) Dose Ordered Sig/Stiven Route PRN Reason Start Time Stop Time Status Last Admin Dose Admin Acetaminophen (Tylenol) 650 mg Q4H PRN ORAL FEVER 07/25/19 11:45 08/24/19 11:44 07/25/19 21:52 Aspirin (ASA) 162 mg DAILY ORAL 07/26/19 09:00 08/25/19 08:59 07/30/19 08:49 Atorvastatin Calcium (Lipitor) 80 mg BEDTIME ORAL 07/26/19 21:00 08/25/19 20:59 07/29/19 20:57 Dextrose (Dextrose 50%) 25 ml Q30M PRN IV Hypoglycemia 07/25/19 11:45 08/24/19 11:44 Dextrose (Dextrose 50%) 50 ml Q30M PRN IV Hypoglycemia 07/25/19 11:45 08/24/19 11:44 Diltiazem HCl (Cardizem) 10 mg Q1H PRN IV heart rate more than 120, 07/25/19 11:45 08/24/19 11:44 Enalaprilat (Vasotec) 2.5 mg Q6H PRN IV sbp more than 160 07/25/19 11:45 08/24/19 11:44 Heparin Sodium/ Dextrose 500 ml @ 23.133 mls/ hr ADJUST PER PROTOCOL IV 07/30/19 13:34 08/29/19 13:33 07/30/19 13:40 Insulin Aspart (NovoLOG) BEFORE MEALS AND HS SUBQ 07/25/19 16:30 08/24/19 16:29 07/30/19 17:23 Metoprolol Tartrate (Lopressor) 12.5 mg Q12HR ORAL 07/26/19 21:00 08/25/19 20:59 07/30/19 08:48 Nitroglycerin (Nitro-Bid) 1 inch TID@0600,1200,1800 TOPIC 07/27/19 18:00 08/26/19 17:59 07/30/19 17:22 Nitroglycerin (Ntg) 0.4 mg Q5M PRN SL Prn Chest Pain 07/25/19 11:45 08/24/19 11:44 07/30/19 08:58 Ondansetron HCl (Zofran) 4 mg Q6H PRN IVP Nausea & Vomiting 07/25/19 11:45 08/24/19 11:44 Pantoprazole (Protonix) 40 mg DAILY ORAL 07/26/19 09:00 08/25/19 08:59 07/30/19 08:48 Polyethylene Glycol (Miralax) 17 gm DAILYPRN PRN ORAL Constipation 07/25/19 11:45 08/24/19 11:44 Temazepam (Restoril) 15 mg HSPRN PRN ORAL Insomnia 07/25/19 11:45 08/01/19 11:44 Allergies: Coded Allergies: METFORMIN (Unverified Allergy, Unknown, 07/25/19) ROS Limited/Unobtainable: No Constitutional: Reports: no symptoms HEENT: Reports: no symptoms Cardiovascular: Reports: chest pain Respiratory: Reports: no symptoms Gastrointestinal/Abdominal: Reports: no symptoms Genitourinary: Reports: no symptoms Neurologic/Psychiatric: Reports: no symptoms Subjective 49 YO F with history of coronary artery dis admitted with chest pain. Now elevated troponin. Await Cardiology consult. Cover for Int Med-Dr Ladd Objective Last Vital Signs Date Time Temp Pulse Resp B/P (MAP) Pulse Ox O2 Delivery O2 Flow Rate FiO2 07/30/19 17:22 146/79 07/30/19 16:00 59 07/30/19 16:00 97.0 18 100 07/30/19 09:00 Room Air 07/29/19 19:51 21 Laboratory Tests Test 07/30/19 04:00 07/30/19 12:30 White Blood Count 4.7 K/UL (4.8-10.8) L Red Blood Count 4.32 M/UL (4.20-5.40) Hemoglobin 13.9 G/DL (12.0-16.0) Hematocrit 41.4 % (37.0-47.0) Mean Corpuscular Volume 96 FL (80-99) Mean Corpuscular Hemoglobin 32.0 PG (27.0-31.0) H Mean Corpuscular Hemoglobin Concent 33.5 G/DL (32.0-36.0) Red Cell Distribution Width 13.7 % (11.6-14.8) Platelet Count 143 K/UL (150-450) L Mean Platelet Volume 13.8 FL (6.5-10.1) H Neutrophils (%) (Auto) 52.1 % (45.0-75.0) Lymphocytes (%) (Auto) 38.7 % (20.0-45.0) Monocytes (%) (Auto) 6.1 % (1.0-10.0) Eosinophils (%) (Auto) 1.6 % (0.0-3.0) Basophils (%) (Auto) 1.5 % (0.0-2.0) Activated Partial Thromboplast Time 63 SEC (23-33) H 96 SEC (23-33) H Sodium Level 147 MMOL/L (136-145) H Potassium Level 4.0 MMOL/L (3.5-5.1) Chloride Level 112 MMOL/L (98-107) H Carbon Dioxide Level 27 MMOL/L (21-32) Anion Gap 8 mmol/L (5-15) Blood Urea Nitrogen 14 mg/dL (7-18) Creatinine 0.8 MG/DL (0.55-1.30) Estimat Glomerular Filtration Rate > 60 mL/min (>60) Glucose Level 145 MG/DL (74-106) H Calcium Level 9.0 MG/DL (8.5-10.1) Troponin I 0.266 ng/mL (0.000-0.056) Intake and Output 07/29/19 07/30/19 19:00 07:00 Intake Total 757.596 ml 231.330 ml Balance 757.596 ml 231.330 ml Intake Oral 480 ml IV Total 277.596 ml 231.330 ml # Voids 3 3 Objective PHYSICAL EXAMINATION: GENERAL: The patient is well-developed, well-nourished female, in mild distress. HEENT: Eyes, pupils equal and responsive to light and accommodation. Extraocular movements are intact. NECK: Supple without lymphadenopathy. CHEST: Lungs are clear to auscultation bilaterally without wheezes or rales. CARDIOVASCULAR: Regular rate. S1 and S2 are normal without murmurs, rubs, or gallops. ABDOMEN: Soft, nontender, and nondistended. Positive bowel sounds. No evidence of hepatosplenomegaly. Currently, no rebound or guarding noted. EXTREMITIES: Negative for clubbing, cyanosis, or edema. RECTAL: Not performed. GENITAL: Not performed. NEUROLOGIC: Cranial nerves II through XII are grossly intact without focal deficits. Motor strength is 5/5 bilaterally. Deep tendon reflexes are 2+ plantar. Assessment/Plan Assessment/Plan ASSESSMENT: This is a 49-year-old female with: 1. Chest pain. 2. Elevated troponin level. 3. History of coronary artery disease. 4. Diabetes type 2. 5. Hypertension. 6. NSTEMI/acute coronary syndrome TREATMENT: 1. Chest pain/elevated troponin. A Cardiology consultation has been obtained with Dr. Arthur New. We will follow recommendations of Cardiology. 2. History of coronary artery disease. The patient is status post stent placement. The patient may require stress testing during this hospitalization. 3. Diabetes type 2. NovoLog sliding scale has been instituted. 4. Hypertension. Continue metoprolol and quinapril as above. 5. Transfer to [facility] in [place] when bed avail-see cardiology note Asif Orlando MD Jul 30, 2019 19:20
[2019-07-30] MEDS ORDERED: LOPRESSOR25 M1 ORAL (19:24)
[2019-07-30] MEDS ORDERED: ASPIRIN81 MG ORAL (19:24)
[2019-07-30] MEDS ORDERED: PANTOPRAZOLE SO40 MG ORAL (19:24)
[2019-07-30] MEDS ORDERED: LIPITOR80 MG ORAL (19:24)
[2019-07-30] MEDS ORDERED: NOVOLOG100 UNITS1 SUBQ (19:24)
[2019-07-30] MEDS ORDERED: NITRO0.4 SL (19:24)
[2019-07-30] MEDS ORDERED: NITRO-BID1 GM TOPIC (19:24)
--- NOTE | 2019-07-30 19:30 | NUR ---
NURSE NOTES: Received pt from Srini RN. Pt awake, alert, and talkative. Bed in lowest position. Call light within reach. Will continue to monitor.
--- NOTE | 2019-07-30 19:45 | NUR ---
HAND-OFF: Report given to Mary Anne HERNANDEZ. Pt remains stable. Report given to Santa HERNANDEZ @[facility]. All informarion given including current heparin drip rate etc.
--- NOTE | 2019-07-30 19:56 | NUR ---
HAND-OFF: Report given to [facility]. PT NOW ON HER WAY TO [facility] ROOM 204. DAY SHIFT RN GAVE REPORT TO MARY CASON - [phone].
--- NOTE | 2019-08-01 08:48 | Discharge Summary ---
Discharge Summary Discharge Summary _ DATE OF ADMISSION: 07/25/2019 DATE OF DISCHARGE: 07/30/2019 DISCHARGED BY: Dr. Brink REASON FOR ADMISSION: 49 years old female with past medical history of diabetes mellitus, coronary artery disease, myocardial infarction, status post cardiac stent placement few years ago [facility], presented to emergency department with chief complaint of chest pain. Upon evaluation troponin was elevated 0.222. Stable electrolytes and renal parameters. Glucose 146. No leukocytosis, stable hemoglobin and hematocrit.. Urine toxicology screen positive for marijuana. Chest x-ray revealed no acute cardiopulmonary pathology. EKG revealed showed sinus rhythm with some T wave abnormality in several leads, including inferior lateral lead , present on previous 2 separate occasions. Patient admitted to telemetry floor for further management. CONSULTANTS: banana loader Dr. New pulmonary /endocrinology specialist Dr. Sarkar [facility] COURSE: Patient admitted to telemetry floor. Patient started on heparin drip. Acquisition Professional and public speaking instructor followed. Echocardiogram demonstrated preserved ejection fraction of 65 to 70% with no evidence of left ventricular hypertrophy. No evidence of pericardial effusion. No evidence of wall motion abnormality. Right ventricular systolic pressure of 19. Serial troponin followed. Troponin was trending up . Patient continue on aspirin and beta-shahzad . Nitroglycerin was on board as needed. Lipid panel revealed elevated LDL 145 , elevated total cholesterol 209 . Patient was continued on statin. Patient was counseled on low-fat low-cholesterol diabetic diet. TSH within normal limits . Blood sugar was managed with sliding scale of insulin. Supplemental oxygen provided and titrated to keep pulse oximetry above 92%. Pulse oxiymetry was stable on room air. Placement was found and secure to [place] contracted facility/ [facility] for cardiac catheterization. Patient was stable for transfer via [facility]. FINAL DIAGNOSES: NSTEMI/ACS Coronary artery disease History of myocardial infarction Stented coronary artery Chest pain Diabetes mellitus type 2 Hypertension Hyperlipidemia Medication noncompliance DISCHARGE MEDICATIONS: See Medication Reconciliation list. DISCHARGE INSTRUCTIONS: Patient was transferred to [facility] as per her insurance for cardiac catheterization via [facility]. I have been assigned to dictate discharge summary for this account. I was not involved in the patient's management. Fanny Evans NP Aug 01, 2019 08:48
== END 2019-07-30 20:15 | disposition critical access hospital, planned readmission (94) | DRG 190 ==
LOC: EDBD 07:51 → EMR 09:32 → 2E 09:39 → EDBEDREQ 11:12
DX: I21.4 Non-ST elevation (NSTEMI) myocardial infarction (principal); I10 Essential (primary) hypertension; I25.10 Atherosclerotic heart disease of native coronary artery without angina pectoris; Z95.5 Presence of coronary angioplasty implant and graft; E11.9 Type 2 diabetes mellitus without complications; Z88.8 Allergy status to other drugs, medicaments and biological substances; I25.2 Old myocardial infarction; Z91.14 Patient's other noncompliance with medication regimen; E78.5 Hyperlipidemia, unspecified
CPT/HCPCS: 36415; 71045; 80048; 80053; 80061; 80307; 82550; 82962; 83690; 83880; 84443; 84484; 85007; 85025; 85610; 85730; 86140; 93005; 93306; 94664; 96374; 96375; 99285; J1815; J2405